=== PATIENT | female | born 1980 | race Caucasian/White ===

== ENCOUNTER 2020-03-22 20:46 | Emergency (ER) | payer SELFPAY ==
[2020-03-22 20:50] VITALS: BP 139/94; PULSE 90; RESP 18; TEMP 36.8; O2SAT 100
--- NOTE | 2020-03-22 21:11 | ED.GENADUL_ITS ---
Discharge Plan Disposition Patient Disposition: HOME Condition: Stable Discharge Details Chief Complaint: Urinary Clinical Impression: Ovarian cyst, Hematuria Primary Care Provider: Chandrika Simms ED Provider: Araceli Xie Home Meds and New Rx's Prescriptions: New phenazopyridine [Pyridium] 100 mg tablet 100 mg PO TID PRN (Reason: pain) Qty: 7 RF: 0 cephalexin 500 mg capsule 500 mg PO BID 5 Days Qty: 10 RF: 0 No Action naproxen sodium 550 MG tablet 550 mg PO Q12H PRN Qty: 60 RF: 0 sumatriptan succinate 6 MG/0.5 ML solution 6 mg SQ PRN PRNRF: 0 norethindrone (contraceptive) [Tulana] 0.35 mg Tablet 0.35 mg PO DAILY RF: 0 Discharge Instructions Instructions: Ovarian Cyst (ED), Hematuria (ED) Additional Instructions: Please take Tylenol or Ibuprofen with food every 4-6 hours as needed for pain and swelling. Please follow-up with an [facility] women's wellness clinic this week. I did speak with Dr. Carrington who agrees to follow-up with you in his office time sometime this week. Take Tylenol or ibuprofen as directed. I will give you antibiotics since you are having dysuria to treat for assumed UTI. Return sooner or be seen sooner for any worsening abdominal pain, worsening vaginal bleeding trouble urinating, fever chills or any concerns. Referrals: Garcia Carrington MD [ [facility] STAFF PHYSICIAN] - Chandrika Simms [Primary Care Provider] - Medical Decision Making 2116: Urinalysis is currently in lab and pending. POC hCG is negative. 2140: Discussed results with patient of urinalysis which shows moderate RBCs no leukocytes no nitrites. Due to patient's pelvic pain and symptoms she opted for a CT abdomen pelvis to rule out kidney stone. I will also give her Pyridium and cephalexin for the dysuria and Toradol for the pelvic pain. CT abdomen pelvis without contrast results are as follows: FINDINGS: Lungs: Lung bases are clear. Liver: Hepatic dome excluded from field of view limiting evaluation. Otherwise unremarkable. Gallbladder and bile ducts: Gallbladder is nondistended limiting evaluation. No focal inflammatory change in the gallbladder fossa. No biliary dilation. Pancreas: Unremarkable. No ductal dilation. Spleen: Splenic dome is excluded from field of view limiting evaluation. Spleen appears borderline enlarged. No splenic mass. Adrenals: Unremarkable. No mass. Kidneys and ureters: There is malrotation of the right kidney. No hydronephrosis or renal calcification. Ureters are normal in course and caliber. Stomach and bowel: Unremarkable. No obstruction. No mucosal thickening. Appendix: Within normal limits. Intraperitoneal space: No free air. No significant fluid collection. Vasculature: Within normal limits. No abdominal aortic aneurysm. Lymph nodes: No pathologically enlarged lymph nodes. Bladder: Unremarkable as visualized. Reproductive: There is complex cystic mass within the left adnexa measuring 3.6 cm in diameter with suggestion of fluid fluid level and punctate calcification. Otherwise unremarkable as visualized. Bones/joints: Unremarkable. No acute fracture. Soft tissues: No focal abnormality. IMPRESSION: 1. Complex 3.6 cm left adnexal cystic mass with suggestion of fluid fluid level and punctate calcification. Favor ovarian dermoid cyst versus hemorrhagic cyst. Recommend further characterization with pelvic sonogram. 2. Otherwise no acute finding of the abdomen or pelvis to explain symptoms. Thank you for allowing us to participate in the care of your patient. Dictated and Authenticated by: Neymar Cano MD 03/22/2020 10:06 PM Eastern Time ([place] & [place]) Will page [employer]GR[employer] TEACHER collections assistant for consult and follow up. Spoke with Dr. Carrington GLUING MACHINE OPERATOR [employer]LECT[employer]IC regarding patient's case and CT results he agreed to follow-up with her and see her sometime next week in the clinic. Discussed results with patient regarding ovarian cyst. She states that she is feeling much better after the Toradol IM injection. At this time I do not feel that is suspicious for ovarian torsion. Patient is mildly tender on the left adnexa with palpation. Her vital signs of remained stable. Due to patient's dysuria and hematuria I will prescribe 5 days of cephalexin 500 mg p.o. and Pyridium 100 mg 3 times a day as needed for dysuria. Instructed to take Tylenol or ibuprofen as needed for pain. Strict return instructions given including worsening pain, vaginal bleeding, inability to urinate, fever chills nausea vomiting or any concerns. Patient verbalized understanding. Differential diagnosis includes but not limited to ovarian cancer, ovarian cyst, ovarian torsion. UTI. Kidney stone. STD, endometriosis. HPI General Mode of arrival: ambulatory . Date/Time Provider Initiated Documentation: 03/22/20 20:51 . Limitations to Documentation: no limitations . Information obtained by: patient . HPI Narrative: 39-year-old female presents with dysuria and hematuria which began yesterday. Also associated with pelvic pain. She reports finishing her normal menstrual period 2 days ago. She states that she does not have any flank pain, no nausea vomiting, no fever or chills. She is concerned for UTI. She denies having any vaginal discharge, pruritus, or bleeding. No diarrhea. Related Data Home Medications Medication Instructions Recorded Confirmed naproxen sodium 550 mg PO Q12H PRN #60 tab-cap 09/30/16 03/22/20 sumatriptan succinate 6 mg SQ PRN PRN 04/08/17 03/22/20 cephalexin 500 mg PO BID 5 Days #10 cap 03/22/20 norethindrone (contraceptive) 0.35 mg PO DAILY 03/22/20 03/22/20 [Tulana] phenazopyridine [Pyridium] 100 mg PO TID PRN #7 tab 03/22/20 Previous Rx's Medication Instructions Recorded cephalexin 500 mg PO BID 5 Days #10 cap 03/22/20 phenazopyridine [Pyridium] 100 mg PO TID PRN #7 tab 03/22/20 Allergies Allergy/AdvReac Type Severity Reaction Status Date / Time carbamazepine [From Tegretol] Allergy Unknown RASH / LEGS Unverified 03/22/20 20:51 General Stated Complaint: Urinary KALEY: 3 Review of Systems Narrative: Constitutional: Negative for weight loss, alert and oriented, well groomed, normal body habitus, appears comfortable. HEENT: Denies trauma, headaches, blurry vision, nasal discharge, sore throat, trouble swallowing. Chest: Denies chest pain, palpitations, irregular rhythm, hypertension. Respiratory: Denies Shortness of breath, cough, hemoptysis. GI: Denies abdominal pain, nausea, vomiting, diarrhea, constipation. : Denies flank pain, rectal bleeding. Positive dysuria, positive hematuria. Denies vaginal discharge or itching. Denies any concern for STD. [facility] Medical History Contraception 07/2015 pt's planning vasectomy History of alcohol use 2014 no ETOH x3yrs History of depression Zoloft x6mo. Social History Smoking/Tobacco Use Status: Former Tobacco Use Alcohol Intake: never Substance use type: does not use Do you feel safe at home: Yes Do you feel safe in your relationship?: Yes Exam Narrative Exam Narrative: Constitutional: Alert and oriented x3. Appears stated age. Normal body habitus. Head: Normocephalic, no trauma. Eyes: Pupils PERRLA, Red reflex noted, EOM's intact. Eyelids symmetrical without lesions, discharge, or swelling. ENT: Bilateral TM's WNL, External ear normal to inspection, no mastoid TTP, swelling, or erythema, Nasal turbinates WNL, no nasal discharge. Normal dentition, Posterior pharynx WNL, no exudate. Chest: RRR, Normal S1, S2, distal pulses intact. Resp: Lungs clear to auscultation bilaterally, no wheezes, rales, or rhonchi. Abdomen: Soft nontender to palpation. Bowel sounds equal all 4 quadrants and normoactive. : No CVA tenderness no suprapubic tenderness to palpation. Skin: No suspicious rashes or lesions. Capillary refill less than 2 sec. Course Vital Signs Vital signs: Vital Signs Temperature 36.8 C 03/22/20 20:50 Pulse 90 03/22/20 20:50 Respiratory Rate 18 03/22/20 20:50 Blood Pressure 139/94 H 03/22/20 20:50 Pulse Oximetry 100 03/22/20 20:50 Temperature 36.8 C 03/22/20 20:50 Temperature Source Temporal Artery Scan 03/22/20 20:50 Pulse 90 03/22/20 20:50 Respiratory Rate 18 03/22/20 20:50 Respiratory Effort Non-Labored 03/22/20 20:55 Blood Pressure 139/94 H 03/22/20 20:50 Blood Pressure Position Sitting 03/22/20 20:50 Pulse Oximetry 100 03/22/20 20:50 Oxygen Delivery Method Room Air 03/22/20 20:50 Oxygen Flow Rate 0 03/22/20 20:50 Pain Level 9 03/22/20 20:55 Lab/Test Results Lab/Test Results: POC- Test(urine) Negative
[2020-03-22 21:23] LABS: Bilirubin Negative (Negative); Blood Moderate (Negative); Clarity Cloudy (Clear); Glucose Negative (Negative); Ketones Negative (Negative); Leukocyte Esterase Negative (Negative); Nitrite Negative (Negative); Specific Gravity >= 1.030 (1.005-1.025); Urobilinogen 0.2 EU/dL (Up TO 0.2)
[2020-03-22 21:25] LABS: WBC >50 HPF (0-5)
[2020-03-22 21:26] LABS: C & S Indicated? Yes; RBC >50 HPF (0-2)
--- NOTE | 2020-03-22 21:30 | DI.CT_ITS ---
EXAM: CT RENAL COLIC WO CLINICAL HISTORY: hematuria, pelvic pain. TECHNIQUE: Imaging Protocol: Axial computed tomography images with coronal and sagittal reformatted images were created and reviewed. COMPARISON: No exams were available for comparison FINDINGS: ABDOMEN: Lung Bases: Normal where visualized. Liver: Visualized portion is unremarkable. No measurable mass. Gallbladder and biliary tract: No radiodense calculus or biliary ductal dilation. Pancreas: Normal density, no abnormal calcifications or inflammatory process. Spleen: Visualized portion is unremarkable. Kidneys: Normal size, contour and axis. No radiodense stones or obstructive uropathy. No masses seen. There is malrotation of the right kidney. Adrenal glands: No masses seen. Lymph nodes: Within normal limits. Abdominal Aorta: Abdominal portion non-dilated. PELVIS: Bladder: Symmetric distention, no gross wall thickening. Bowel: No obstruction or bowel wall thickening. The appendix is normal in size without evidence of ad jacent mesenteric fat stranding or adjacent fluid collection. Peritoneal cavity: No ascites, collection or mesenteric inflammatory response. Reproductive organs: There is a 3.6 cm complex cystic lesion in the left adnexa. It does contain a f luid level and a punctate calcification. Bones: Within normal limits. Soft Tissues: Within normal limits. IMPRESSION: 1. No evidence of nephrolithiasis or hydronephrosis. 2. 3.6 cm complex cystic lesion with an internal calcification in the left adnexa. This may represen t an ovarian dermoid cyst. Hemorrhagic cysts cannot be excluded. Pelvic ultrasound should be consid ered for further evaluation. RADIATION DOSE DELIVERED: Total DLP DATA REPOSITORY: All CT scans at this facility are submitted to the National Radiology Data Registry (NRDR) Dose Index Registry (DIR) with the [employer] (A[employer]). RADIATION OPTIMIZATION: All CT scans at this facility use at least one of these dose optimization te chniques: automated exposure control; mA and/or kV adjustment per patient size (includes targeted exa ms where dose is matched to clinical indication); or iterative reconstruction.
[2020-03-22] MEDS: Cephalexin 500 MG CAP PO (21:42)
[2020-03-22] MEDS: Ketorolac 30 MG/ML VIAL IM (21:42)
[2020-03-22] MEDS: Phenazopyridine 100 MG TAB PO (21:42)
--- NOTE | 2020-03-22 22:07 | DI.VRAD_ITS ---
PROCEDURE INFORMATION: Exam: CT Abdomen And Pelvis Without Contrast Exam date and time: 03/22/2020 9:33 PM Age: 39 years old Clinical indication: Patient HX: Hematuria, pelvic pain TECHNIQUE: Imaging protocol: Computed tomography of the abdomen and pelvis without contrast. COMPARISON: [place] OB US 2-3 TRIMESTER TRANSABD*P 07/08/2015 3:03 PM FINDINGS: Lungs: Lung bases are clear. Liver: Hepatic dome excluded from field of view limiting evaluation. Otherwise unremarkable. Gallbladder and bile ducts: Gallbladder is nondistended limiting evaluation. No focal inflammatory change in the gallbladder fossa. No biliary dilation. Pancreas: Unremarkable. No ductal dilation. Spleen: Splenic dome is excluded from field of view limiting evaluation. Spleen appears borderline enlarged. No splenic mass. Adrenals: Unremarkable. No mass. Kidneys and ureters: There is malrotation of the right kidney. No hydronephrosis or renal calcification. Ureters are normal in course and caliber. Stomach and bowel: Unremarkable. No obstruction. No mucosal thickening. Appendix: Within normal limits. Intraperitoneal space: No free air. No significant fluid collection. Vasculature: Within normal limits. No abdominal aortic aneurysm. Lymph nodes: No pathologically enlarged lymph nodes. Bladder: Unremarkable as visualized. Reproductive: There is complex cystic mass within the left adnexa measuring 3.6 cm in diameter with suggestion of fluid fluid level and punctate calcification. Otherwise unremarkable as visualized. Bones/joints: Unremarkable. No acute fracture. Soft tissues: No focal abnormality. IMPRESSION: 1. Complex 3.6 cm left adnexal cystic mass with suggestion of fluid fluid level and punctate calcification. Favor ovarian dermoid cyst versus hemorrhagic cyst. Recommend further characterization with pelvic sonogram. 2. Otherwise no acute finding of the abdomen or pelvis to explain symptoms. Dictated and Authenticated by: Neymar Cano MD. Ordering:LOC Charles MD
[2020-03-22 22:32] VITALS: BP 139/94; PULSE 90; RESP 18; TEMP 36.8; O2SAT 100
== END 2020-03-22 22:40 | disposition home or self-care (01) ==
PROVIDERS: Emergency Provider Registered Nurse Emergency; PCP Nurse Practitioner
DX: N83.202 Unspecified ovarian cyst, left side (principal); R31.9 Hematuria, unspecified
CPT/HCPCS: 81025; 96372; 99285; 74176; 81003; 81015; 87086; 99284; J1885

== ENCOUNTER 2020-11-07 14:32 | Emergency (ER) | payer SELFPAY ==
[2020-11-07 14:44] VITALS: BP 159/99; PULSE 104; RESP 20; TEMP 36.7; O2SAT 99
--- NOTE | 2020-11-07 15:00 | RT.EKG_ITS ---
APPROVED REPORT Exam: Resting ECG Patient Location: E HR:98 bpm ECG Measurements Heart Rate 98 AXIS KS 108 P 88 QRSd 81 QRS 81 QT 338 T -11 QTc 433 Conclusion Sinus rhythm
--- NOTE | 2020-11-07 15:18 | ED.GENADUL_ITS ---
Discharge Plan Disposition Patient Disposition: HOME Condition: Stable Discharge Details Clinical Impression: Alcohol withdrawal Primary Care Provider: None,None ED Provider: Nick Meneses Home Meds and New Rx's Prescriptions: Continued naproxen sodium 550 MG tablet 550 mg PO Q12H PRN Qty: 60 RF: 0 sumatriptan succinate 6 MG/0.5 ML solution 6 mg SQ PRN PRNRF: 0 norethindrone (contraceptive) [[place]ulana] 0.35 mg Tablet 0.35 mg PO DAILY RF: 0 multivitamin Tablet 1 tab PO DAILY RF: 0 naltrexone 50 mg Tablet 25 mg PO HS RF: 0 propranolol 10 mg Tablet 10 mg PO PRN PRNRF: 0 dextroamphetamine-amphetamine [Adderall XR] 20 mg Capsule,Extended Release 24hr 20 mg PO DAILY RF: 0 diphenhydramine HCl 25 mg Tablet 25 mg PO PRN PRNRF: 0 mirtazapine 15 mg Tablet 15 mg PO HS RF: 0 docosahexaenoic acid-epa Capsule 1 cap PO DAILY RF: 0 Discharge Instructions Instructions: Alcohol Withdrawal (ED) Additional Instructions: At this time it appears as though you have responded nicely to the IV fluids and medications given. We discussed options such as detox within the facility however you have declined and ultimately would like to get down to [place] where you have detox in the past. I have set you up with both a student success coach and with our home health care worker to help with expediting outpatient resources and care. You have decided to be discharged home and will attempt to wean yourself slowly off of alcohol so that you can then go to the facility in [place]. Please watch for new or worsening symptoms and return to the ER for any concerns. Discharge Data Discharge Date/Time-TO BE ENTERED AT DEPARTURE: 11/07/20 20:35 Medical Decision Making <Araceli Xie - Last Filed: 11/10/20 08:41> 40-year-old female presents to the ED with chief complaint of alcohol intoxication and withdrawal symptoms. She states that prior to arrival she was tremulous, having auditory hallucinations, palpitations, nausea and dizziness. She does have a history of alcohol withdrawal. She had her last drink just prior to arrival. She states that yesterday she had 14 glasses of wine. She denies any vomiting or abdominal pain. At this time work-up ordered including CBC, CMP, alcohol level, urinalysis, urine drug screen normal saline 1 L a banana bag and 0.5 mg of lorazepam p.o. and Zofran 4 mg p.o. ODT. Care is to be handed off to oncoming provider FERNY Woodard pending lab, reevaluation and disposition. <FERNY Barrow - Last Filed: 11/07/20 20:50> This is a 40-year-old female who I assumed care of at shift change from my colleague LD Xie, please see her initial HPI and examination. Patient has been medicated but laboratory values are pending at signout. Laboratory values reveal a white blood cell count of 7.50 hemoglobin 14.2 hematocrit 43.1 platelet count 331. Electrolytes are unremarkable. Creatinine 0.67 with a GFR greater than 60. Initial glucose was 67. Patient did eat without difficulty and recheck glucose later was 101. Calcium 9.1 magnesium 2.1 LFTs are unremarkable, lipase 63. Urinalysis without signs of infection. Alcohol 79.5, tox screen unremarkable. Upon evaluating the patient in room 8, I saw a 40-year-old female lying supine in the hospital stretcher in no acute distress. It appears as though she was sleeping, awakes easily to verbal stimuli. We discussed her unremarkable work- up thus far. She states that she does have a mild headache but is overall feeling improvement. Her blood pressure is trending down nicely and she is no longer presenting with tachycardia. She denies any current hallucinations, shaking, abdominal pain, nausea, vomiting. She does not believe that she has ever had a seizure in the past. We had a very transparent conversation regarding how I could help her the most this evening. She states that she is not looking for inpatient detox this evening, does not want to be admitted, and needs to be tuned up. Clinically I see no signs of active withdrawal. She tells me that she eventually would like to go to a detox facility in [place] that she has gone to in the past; however, she needs to go at a more convenient time. We discussed additional options. She is comfortable with discharge home and states that she was on the phone with the detox facility in [place] within the last 24 hours who thought that she perhaps was attempting to detox at home to aggressively, likely needed to slow down. I got her into contact with a student success coach, they spoke on the phone, and she will continue to follow their recommendations. I was also able to place her on the care management list to help expedite outpatient resources and care locally here. Upon discharge patient has no additional questions or concerns. She feels as though going home currently is the best option, will continue to attempt to wean herself off of alcohol more slowly at home, and get to detox in [place] when more convenient. We discussed the importance of returning to the ER for new or worsening symptoms. Medical Records Medical records reviewed: Yes I reviewed the patient's medical records. Lab Data Lab results reviewed: Yes I reviewed the patient's lab results. Lab results narrative: Laboratory Tests Range/Units 11/07/20 11/07/20 11/07/20 15:45 15:45 16:05 WBC (4.4-10.8) 10^3/uL RBC (3.93-5.22) 10^6/uL Hgb (11.2-15.7) g/dL Hct (36.0-46.0) % MCV (80-95) fL MCH (27.0-33.0) pg MCHC (32.0-36.0) % RDW (11.7-14.6) % Plt Count (130-400) 10^3/uL MPV (8.0-11.0) fL Immature Gran % Neutrophils % Lymphocytes % Monocytes % Eosinophils % Basophils % Nucleated RBC % % Absolute Neutrophils (1.2-6.7) 10^3/uL Absolute Lymphocytes (1.2-3.4) 10^3/uL Absolute Monocytes (0.1-0.8) 10^3/uL Absolute Eosinophils (0.0-0.7) 10^3/uL Absolute Basophils (0.0-0.2) 10^3/uL Sodium (136-145) mmol/L 138 Potassium (3.5-5.1) mmol/L 4.1 Chloride (98-107) mmol/L 103 Carbon Dioxide (21.0-32.0) mmol/L 26.1 Anion Gap (3-11) mmol/L 8.9 BUN (7-18) mg/dL 10 Creatinine (0.55-1.02) mg/dL 0.67 Estimated GFR/1.73 m2 (mL/min/1.73m2) >= 60.00 Glucose (74-106) mg/dL 67 L Calcium (8.5-10.1) mg/dL 9.1 Magnesium (1.8-2.4) mg/dL 2.1 Total Bilirubin (0.2-1.0) mg/dL 0.5 AST (15-37) U/L 20 ALT (14-59) U/L 22 Alkaline Phosphatase (46-116) U/L 60 Total Protein (6.4-8.2) g/dL 8.1 Albumin (3.4-5.0) g/dL 4.2 Lipase (73-393) U/L 63 Urine Color (Yellow) Straw Urine Clarity (Clear) Clear Urine pH (5-8) 6.0 Ur Specific [place] (1.005-1.025) <= 1.005 Urine Protein (Negative) mg/dL Negative Urine Ketones (Negative) mg/dL Negative Urine Blood (Negative) Small H Urine Nitrite (Negative) Negative Urine Bilirubin (Negative) Negative Urine Urobilinogen (Up TO 0.2) EU/dL 0.2 Ur Leukocyte Esterase (Negative) Negative Urine RBC (0-2) HPF Negative Urine WBC (0-5) HPF Negative Ur Epithelial Cells (Negative) HPF Moderate Urine Crystals (Negative) HPF Negative Urine Bacteria (Negative) HPF Negative Urine Mucus (Negative) Negative Ur Culture Indicated? No Urine Glucose (Negative) mg/dL Negative Urine Opiates Screen (Negative) Negative Urine Methadone Screen (Negative) Negative Ur Barbiturates Screen (Negative) Negative Ur Tricyclics Screen (Negative) Negative Ur Amphetamines Screen (Negative) Negative U Benzodiazepines Scrn (Negative) Negative Urine Cocaine Screen (Negative) Negative Ur THC Screen (Negative) Negative Ethyl Alcohol (<3) mg/dL 79.5 Range/Units 11/07/20 16:05 WBC (4.4-10.8) 10^3/uL 7.50 RBC (3.93-5.22) 10^6/uL 4.72 Hgb (11.2-15.7) g/dL 14.2 Hct (36.0-46.0) % 43.1 MCV (80-95) fL 91.3 MCH (27.0-33.0) pg 30.1 MCHC (32.0-36.0) % 32.9 RDW (11.7-14.6) % 15.4 H Plt Count (130-400) 10^3/uL 331 MPV (8.0-11.0) fL 10.8 Immature Gran % 0.3 Neutrophils % 73.7 Lymphocytes % 19.3 Monocytes % 5.1 Eosinophils % 1.1 Basophils % 0.5 Nucleated RBC % % 0 Absolute Neutrophils (1.2-6.7) 10^3/uL 5.53 Absolute Lymphocytes (1.2-3.4) 10^3/uL 1.45 Absolute Monocytes (0.1-0.8) 10^3/uL 0.38 Absolute Eosinophils (0.0-0.7) 10^3/uL 0.08 Absolute Basophils (0.0-0.2) 10^3/uL 0.04 Sodium (136-145) mmol/L Potassium (3.5-5.1) mmol/L Chloride (98-107) mmol/L Carbon Dioxide (21.0-32.0) mmol/L Anion Gap (3-11) mmol/L BUN (7-18) mg/dL Creatinine (0.55-1.02) mg/dL Estimated GFR/1.73 m2 (mL/min/1.73m2) Glucose (74-106) mg/dL Calcium (8.5-10.1) mg/dL Magnesium (1.8-2.4) mg/dL Total Bilirubin (0.2-1.0) mg/dL AST (15-37) U/L ALT (14-59) U/L Alkaline Phosphatase (46-116) U/L Total Protein (6.4-8.2) g/dL Albumin (3.4-5.0) g/dL Lipase (73-393) U/L Urine Color (Yellow) Urine Clarity (Clear) Urine pH (5-8) Ur Specific [place] (1.005-1.025) Urine Protein (Negative) mg/dL Urine Ketones (Negative) mg/dL Urine Blood (Negative) Urine Nitrite (Negative) Urine Bilirubin (Negative) Urine Urobilinogen (Up TO 0.2) EU/dL Ur Leukocyte Esterase (Negative) Urine RBC (0-2) HPF Urine WBC (0-5) HPF Ur Epithelial Cells (Negative) HPF Urine Crystals (Negative) HPF Urine Bacteria (Negative) HPF Urine Mucus (Negative) Ur Culture Indicated? Urine Glucose (Negative) mg/dL Urine Opiates Screen (Negative) Urine Methadone Screen (Negative) Ur Barbiturates Screen (Negative) Ur Tricyclics Screen (Negative) Ur Amphetamines Screen (Negative) U Benzodiazepines Scrn (Negative) Urine Cocaine Screen (Negative) Ur THC Screen (Negative) Ethyl Alcohol (<3) mg/dL HPI <Araceli Xie - Last Filed: 11/10/20 08:41> General Mode of arrival: ambulatory . Date/Time Provider Initiated Documentation: 11/07/20 14:37 . Limitations to Documentation: no limitations . Information obtained by: patient . HPI Narrative: 40-year-old female presents to the ED with chief complaint of alcohol withdrawal. She states that she had approximately 14 glasses of wine yesterday and approximately 3 glasses of wine just prior to arrival. She reports palpitations, nausea, headache, auditory hallucinations. She states that she has withdrawn before in the past. She denies any vomiting. She does have a past medical history of migraines. She does endorse marijuana occasionally. Related Data Home Medications Medication Instructions Recorded Confirmed naproxen sodium 550 mg PO Q12H PRN #60 tab-cap 09/30/16 11/07/20 sumatriptan succinate 6 mg SQ PRN PRN 04/08/17 11/07/20 norethindrone (contraceptive) 0.35 mg PO DAILY 03/22/20 11/07/20 [Tulana] dextroamphetamine-amphetamine 20 mg PO DAILY 11/07/20 11/07/20 [Adderall XR] diphenhydramine HCl 25 mg PO PRN PRN 11/07/20 11/07/20 docosahexaenoic acid-epa 1 cap PO DAILY 11/07/20 11/07/20 mirtazapine 15 mg PO HS 11/07/20 11/07/20 multivitamin 1 tab PO DAILY 11/07/20 11/07/20 naltrexone 25 mg PO HS 11/07/20 11/07/20 propranolol 10 mg PO PRN PRN 11/07/20 11/07/20 Allergies Allergy/AdvReac Type Severity Reaction Status Date / Time carbamazepine [From Tegretol] Allergy Unknown RASH / LEGS Unverified 11/07/20 16:05 gabapentin Allergy Skin Rash Unverified 11/07/20 16:05 General Stated Complaint: ETOHWithdr KALEY: 3 Review of Systems <Araceli Xie - Last Filed: 11/10/20 08:41> Narrative: Constitutional: Negative for weight loss, alert and oriented, well groomed, normal body habitus, appears comfortable. HEENT: Denies trauma, headaches, blurry vision, nasal discharge, sore throat, trouble swallowing. Chest: Denies chest pain, palpitations, irregular rhythm, hypertension. Respiratory: Denies Shortness of breath, cough, hemoptysis. GI: Denies abdominal pain, nausea, vomiting, diarrhea, constipation. : Denies dysuria, hematuria, flank pain, rectal bleeding. Neuro: Denies dizziness, blurry vision, weakness, syncope, headache or facial numbness. Hematologic: Denies easy bruising, intolerance to heat or cold, hair loss. PFSH <Araceli Xie - Last Filed: 11/10/20 08:41> Medical History (Updated 11/07/20 @ 19:23 by FERNY Barrow) Contraception 07/2015 pt's planning vasectomy History of alcohol use 2014 no ETOH x3yrs History of depression Zoloft x6mo. Social History Smoking/Tobacco Use Status: Current every day Tobacco Type: cigarettes Smoking risk assessment performed?: Yes Alcohol Intake: current Alcohol Intake frequency: 3 or more drinks per day Alcohol type: beer, wine and hard liquor Drug use: Occasionally Substance use type: marijuana, club/fuel cell designer drugs and other Do you feel safe at home: Yes Do you feel safe in your relationship?: Yes Exam <Araceli Xie - Last Filed: 11/10/20 08:41> Narrative Exam Narrative: Constitutional: Alert and oriented x3. Appears stated age. Normal body habitus. Head: Normocephalic, no trauma. Eyes: Pupils PERRLA, Red reflex noted, EOM's intact. Eyelids symmetrical without lesions, discharge, or swelling. ENT: Bilateral TM's WNL, External ear normal to inspection, no mastoid TTP, swelling, or erythema, Nasal turbinates WNL, no nasal discharge. Normal dentition, Posterior pharynx WNL, no exudate. Chest: Tachycardic, normal S1, S2, distal pulses intact. Hypertensive, Resp: Lungs clear to auscultation bilaterally, no wheezes, rales, or rhonchi. Musculoskeletal: Normal gait, 5/5 strength to all four extremities. Skin: No suspicious rashes or lesions. Capillary refill less than 2 sec. Neurologic: Cranial nerves II-XII intact. Alert and oriented x 3. DTR's intact. Hematologic/Lymphatic: No ecchymosis, no lymphadenopathy. Course <Araceli Xie - Last Filed: 11/10/20 08:41> Vital Signs Vital signs: Vital Signs Temperature 36.7 C 11/07/20 14:44 Pulse 104 H 11/07/20 14:44 Respiratory Rate 20 11/07/20 14:44 Blood Pressure 159/99 H 11/07/20 14:44 Pulse Oximetry 99 11/07/20 14:44 Temperature 36.7 C 11/07/20 14:44 Pulse 104 H 11/07/20 14:44 Respiratory Rate 20 11/07/20 14:44 Respiratory Effort Non-Labored 11/07/20 14:49 Respiratory Pattern Normal 11/07/20 14:53 Blood Pressure 159/99 H 11/07/20 14:44 Blood Pressure Position Sitting 11/07/20 14:44 Pulse Oximetry 99 11/07/20 14:44 Oxygen Delivery Method Room Air 11/07/20 14:44 Oxygen Flow Rate 0 11/07/20 14:44 Pain Level 7 11/07/20 14:44 Sign Out <Araceli Xie - Last Filed: 11/10/20 08:41> Sign Out Data: Sign Out Comment: Pending labs and re-eval/disposition Last updated by Araceli Xie at 11/07/20 16:00
[2020-11-07 15:57] LABS: Bilirubin Negative (Negative); Blood Small (Negative); Clarity Clear (Clear); Glucose Negative (Negative); Ketones Negative (Negative); Leukocyte Esterase Negative (Negative); Nitrite Negative (Negative); Specific Gravity <= 1.005 (1.005-1.025); Urobilinogen 0.2 EU/dL (Up TO 0.2)
[2020-11-07 16:08] LABS: *AMPHETAMINES SCREEN URINE Negative (Negative); *BARBITURATES SCREEN URINE Negative (Negative); *BENZODIAZEPINES SCREEN URINE Negative (Negative); Cannabinoids THC Negative (Negative); Cocaine Screen,Urine Negative (Negative); METHADONE URINE SCREEN Negative (Negative); OPIATES URINE SCREEN Negative (Negative)
[2020-11-07 16:18] LABS: Bacteria Negative HPF (Negative); C & S Indicated? No; Crystals Negative HPF (Negative); Epithelial Cells Moderate HPF (Negative); Mucus Negative (Negative); RBC Negative HPF (0-2); WBC Negative HPF (0-5)
[2020-11-07 16:20] LABS: Tricyclic Antidepressants Negative (Negative)
[2020-11-07 16:37] LABS: Abs Immature Grans 0.02 10^3/uL (0.0-0.06); Absolute Basophil Count 0.04 10^3/uL (0.0-0.2); Absolute Eosinophil Count 0.08 10^3/uL (0.0-0.7); Absolute Lymphocyte Count 1.45 10^3/uL (1.2-3.4); Absolute Monocyte Count 0.38 10^3/uL (0.1-0.8); Absolute Neutrophil Count 5.53 10^3/uL (1.2-6.7); Basophils % 0.5; Eosinophils % 1.1; HCT 43.1 % (36.0-46.0); HGB 14.2 g/dL (11.2-15.7); Immature Grans % 0.3; Lymphocytes % 19.3; MCH 30.1 pg (27.0-33.0); MCHC 32.9 % (32.0-36.0); MCV 91.3 fL (80-95); MPV 10.8 fL (8.0-11.0); Monocytes % 5.1; Neutrophils % 73.7; Nucleated RBC 0 %; Platelet Count 331 10^3/uL (130-400); RBC 4.72 10^6/uL (3.93-5.22); RDW 15.4 % (11.7-14.6); RDW-SD 52.2 fL
[2020-11-07] MEDS: MAGNESIUM SULFATE 8.12 MEQ, MULTIVITAMIN 10 ML, THIAMINE 100 MG, FOLIC ACID 1 MG in Nor... 168.867 MG IV (16:42)
[2020-11-07 16:56] LABS: ALT 22 U/L (14-59); AST 20 U/L (15-37); Albumin 4.2 g/dL (3.4-5.0); Alkaline Phosphatase 60 U/L (46-116); Anion Gap 8.9 mmol/L (3-11); BUN 10 mg/dL (7-18); Bilirubin, Total 0.5 mg/dL (0.2-1.0); CO2 26.1 mmol/L (21.0-32.0); CREATININE 0.67 mg/dL (0.55-1.02); Calcium 9.1 mg/dL (8.5-10.1); Chloride 103 mmol/L (98-107); ETHANOL BLOOD 79.5 mg/dL (<3); Glucose 67 mg/dL (74-106); Lipase 63 U/L (73-393); Magnesium 2.1 mg/dL (1.8-2.4); Potassium 4.1 mmol/L (3.5-5.1); Sodium 138 mmol/L (136-145); Total Protein 8.1 g/dL (6.4-8.2)
[2020-11-07 17:34] VITALS: BP 111/73; PULSE 70; RESP 16; TEMP 36.4; O2SAT 99
--- NOTE | 2020-11-07 17:45 | NUR.NOTE ---
Nursing Note: Referral given to Care Management to establish care/ongoing alcohol abuse for follow up. Sissy Rhodes
[2020-11-07 19:35] VITALS: BP 106/62; PULSE 89; RESP 16; TEMP 36.5; O2SAT 98
[2020-11-07 19:38] VITALS: BP 106/62; PULSE 89; RESP 16; TEMP 36.5; O2SAT 98
--- NOTE | 2020-11-08 11:06 | NUR.NOTE ---
Nursing Note: [facility] Pooling Operator spoke with patient yesterday. Today tried to contact the patient with no success. Called to see if admitted or discharged. Pt was discharged, I gave her the number we have on file and it is the same number that she gave the Pooling Operator. Sissy Rhodes
--- NOTE | 2020-11-10 17:57 | CMPROGNOTE_ITS ---
- If Service Date Differs Date of service: 11/10/20 Time of Service: 17:57 Care Management Progress Note CM received a referral for Steff to be connected to a new PCP for follow up and to establish care. CM sent referral to Tdoc on schedule, which was Olimpia Hernandez from [facility]. Referral sent on 11/10/20.
== END 2020-11-07 20:35 | disposition home or self-care (01) ==
PROVIDERS: Registered Nurse Emergency; Emergency Provider Physician Assistant
DX: F10.131 Alcohol abuse with withdrawal delirium (principal); Y90.3 Blood alcohol level of 60-79 mg/100 ml
CPT/HCPCS: 36415; 36416; 80053; 80307; 81025; 82962; 83690; 93005; 96365; 96366; 99284; 80320; 81003; 81015; 83735; 85025; 93010

== ENCOUNTER 2021-04-08 21:18 | Observation (INO) | payer OTHER, SELFPAY ==
[2021-04-08 21:24] VITALS: BP 134/84; PULSE 83; RESP 16; TEMP 36.1; O2SAT 100
--- NOTE | 2021-04-08 21:28 | ED.GENADUL_ITS ---
Discharge Plan Disposition Patient Disposition: [facility] INPATIENT Condition: Fair Discharge Details Chief Complaint: LIVE IN COMPANION Clinical Impression: Positive test, Left lower quadrant pain, Free fluid in pelvis Admit Date/Time: 04/09/21 00:35 Admit Provider: Steff Mock Attending Provider: Steff Mock Primary Care Provider: None,None ED Provider: Leti Greco Discharge Instructions Activity:: Activity as Tolerated Equipment/Supplies:: No Equipment Needed Diet:: As Tolerated Discharge Orders Discharge Orders: Discharge Order (Routine); Ordered 04/09/21 Ordered By: Steff Mock Discharge Data Discharge Date/Time-TO BE ENTERED AT DEPARTURE: 04/09/21 01:36 Medical Decision Making Patient is a pleasant 40-year-old female presenting today with chief complaint of left lower quadrant pain. She reports that pain began last night after having intercourse with her significant other. She reports that shortly after she developed stabbing pain in the left lower quadrant. States that she was nauseated and vomited x1. Reports that this severe pain lasted for approximately 1 hour and eventually began to subside. Since that time, patient had a low ache in the left lower quadrant. Reports that she did vomit one other time this afternoon. Was currently endorsing nausea. No bowel movement today. Denies any hematuria. No vaginal discharge. No previous abdominal surgeries. Patient is primarily concerned that she may have ruptured an ovarian cyst. Patient did have a renal CT 1 year ago which did show a 3.6 complex cystic lesion in the left adnexa consistent for an ovarian dermoid cyst versus hemorrhagic cyst. They did recommend pelvic ultrasound the patient did not have this performed. Patient has been using anti-inflammatories to help with discomfort LMP 2 weeks ago, patient on OCP. On exam, patient appears anxious and uncomfortable. She does appear nontoxic and hemodynamically stable. She does have tenderness with palpation of the left lower quadrant but no peritoneal findings. Concern at this time for ruptured cyst, also considered torsion, diverticulitis, nephrolithiasis, versus other. Plan for this and blood lower. Patient is on naltrexone daily. She is requesting something for discomfort. Will give Ativan which also help with her anxiety.Will give zofran for nausea. Pain and nausea improved. US reviewed by tech. She advises free fluid in pelvis as well as Morrisons pouch. Notes that left ovary appears unusual but has good blood flow. Patient unable to give urine. HCG qual positive. Will obtain quant, type and screen. Concerned for ruptured ectopic, will consult with OBGYN. Spoke with Dr. Wong. She will come in to evaluate the patient. Reevaluated the patient. Reports that she may have missed 1/2 dose of her OCP. She does not want to be . Pain well controlled at this time. Discussed concerns of ruptured ectopic at length with the patient. She voices understanding. Has remained NPO. US reviewed by radiologist: FINDINGS: Uterus/cervix: The uterus measures 10.2 x 5.1 x 7.2 cm (vol = cm3). Endometrial stripe measures 5.6 mm. Cervical nabothian cyst. Right adnexa: The right ovary measures 3.2 x 2.4 x 2.4 cm (vol = cm3). 18 x 18 x 17 mm right ovarian simple cyst. No mass. Normal ovarian blood flow. Left adnexa: The left ovary measures 5.3 x 3.8 x 4.4 cm (vol = cm3). 2.2 x 2.0 x 1.8 cm and 3.9 x 3.3 x 3.5 cm complex left ovarian cysts. No mass. Normal ovarian blood flow. Intraperitoneal space: Large amount free pelvic fluid containing low-level echoes suggesting complication by hemorrhage or infection. Urinary bladder: Normal. IMPRESSION: 1. Normal Doppler flow to each ovary. No evidence of ovarian torsion. 2. 18 x 18 x 17 mm right ovarian simple cyst. 3. 2.2 x 2.0 x 1.8 cm and 3.9 x 3.3 x 3.5 cm complex left ovarian cysts 4. Large amount free pelvic fluid containing low-level echoes suggesting complication by hemorrhage or infection Spoke with radiologist. No intrauterine PG noted. Patient was evaluated by Dr. Mock. Question if this could be a ruptured hemorrhagic cyst versus ectopic . Based on the current hCG, this is unclear. Dr. Mock recommends admission with continued monitoring and possible surgical intervention. Discussed these recommendations with the patient. She is been n.p.o. since being here. All of her questions and concerns were addressed and she is in agreement with plan. HPI General Mode of arrival: ambulatory . Date/Time Provider Initiated Documentation: 04/08/21 21:19 . Limitations to Documentation: no limitations . Information obtained by: patient, RN notes reviewed and old records reviewed . History of Present Illness 40 year old F presents to the emergency department with the chief complaint of LLQ pain, described as moderate, with intensity rated at 6. Quality is described as aching and sharp, and is localized to the abdomen and left. Patient reports no radiation. Patient started experiencing this day(s) (1) and it has been constant. No relieving factors improve symptom(s), No exacerbating factors reported . Patient notes loss of appetite and nausea/vomiting (2 episodes of vomiting); denies chest pain, cough, fever/chills and shortness of breath. Patient did receive the following treatments prior to arrival, NSAID Related Data Home Medications Medication Instructions Recorded Confirmed naproxen sodium 550 mg PO Q12H PRN #60 tab-cap 09/30/16 04/09/21 sumatriptan succinate 6 mg SQ PRN PRN 04/08/17 04/09/21 norethindrone (contraceptive) 0.35 mg PO DAILY 03/22/20 04/08/21 [Tulana] dextroamphetamine-amphetamine 20 mg PO DAILY 11/07/20 04/09/21 [Adderall XR] diphenhydramine HCl 25 mg PO PRN PRN 11/07/20 04/09/21 docosahexaenoic acid-epa 1 cap PO DAILY 11/07/20 04/09/21 mirtazapine 15 mg PO HS 11/07/20 04/09/21 multivitamin 1 tab PO DAILY 11/07/20 04/08/21 naltrexone 25 mg PO HS 11/07/20 04/08/21 propranolol 10 mg PO PRN PRN 11/07/20 04/09/21 ibuprofen 600 mg tablet 600 mg PO Q6H PRN #30 tab 04/09/21 oxycodone-acetaminophen 5 mg-325 1 tab PO Q6H PRN #7 tab MDD 4 04/09/21 mg tablet Previous Rx's Medication Instructions Recorded ibuprofen 600 mg tablet 600 mg PO Q6H PRN #30 tab 04/09/21 oxycodone-acetaminophen 5 mg-325 1 tab PO Q6H PRN #7 tab MDD 4 04/09/21 mg tablet Allergies Allergy/AdvReac Type Severity Reaction Status Date / Time carbamazepine [From Tegretol] Allergy Unknown RASH / LEGS Unverified 11/07/20 16:05 gabapentin Allergy Skin Rash Unverified 11/07/20 16:05 General Stated Complaint: LIVE IN COMPANION KALEY: 4 Review of Systems Constitutional Constitutional: Reports as per HPI, Denies chills, Denies fatigue, Denies fever(s) and Denies headache(s) ENT Ears, Nose, Mouth, and Throat: Denies headache(s) Cardiovascular Cardiovascular: Reports as per HPI, Denies chest pain and Denies dyspnea Respiratory Respiratory: Reports as per HPI, Denies cough and Denies dyspnea Gastrointestinal Gastrointestinal: Reports as per HPI Genitourinary Genitourinary: Denies abnormal menses, Denies metrorrhagia, Denies hematuria, Denies dyspareunia (pain came on after intercourse, not during), Denies pelvic pain, Denies sexual dysfunction, Denies flank pain and Denies vaginal discharge Musculoskeletal Musculoskeletal: Reports as per HPI and Denies back pain Integumentary/Breasts Skin/Breast: Reports as per HPI and Denies rash Neurologic Neurologic: Reports as per HPI and Denies headache(s) Endocrine Endocrine: Denies fatigue PFSH Medical History Anxiety Depression History of alcohol use Recently started Naltrexone History of depression Zoloft x6mo. Tobacco use Surgical History (Updated 04/09/21 @ 12:19 by Steff Mock MD) History of left salpingo-oophorectomy 04/09/2021. Laparoscopic evaluation of possible left ovarian ectopic . Social History (Updated 04/09/21 @ 01:01 by Steff Mock MD) Smoking/Tobacco Use Status: Current every day Tobacco Type: cigarettes Smoking risk assessment performed?: Yes Alcohol Intake: current Alcohol Intake frequency: 3 or more drinks per day Alcohol type: beer, wine and hard liquor Drug use: Occasionally Substance use type: marijuana, club/kitchen designer drugs and other Household members: other Details: Cordell who has custody of 2 children Number of Children: 2 Communication Needs: None current occupation: owns a diner Sexually active: Yes Do you feel safe at home: Yes Do you feel safe in your relationship?: Yes History History 3 Para 2 Hx # Term Pregnancies 2 Multiple births Hx # Pregnancies 0 Ectopic pregnancies AB induced 1 Hx Number of Living Children 2 AB spontaneous Past Pregnancies Del. Date GA/Weeks # Outcome Route Wgt Sex Labor Lgth Anesthes ia Location Prov Complic 02/19/11 40 No Successful vaginal 3033.399 g Male 09/28/11 8 No Unsuccessful 07/09/15 40 No Successful vaginal 3373.593 g Female Delivery Date: 02/19/11 [facility] Steff [facility]est[facility] Delivery Date: 09/28/11 Steff [place] Delivery Date: 07/09/15 Steff [facility] Exam Const General: cooperative, healthy appearing, uncomfortable, no acute distress, well developed and anxious Nutritional Appearance: average body habitus and well nourished Orientation: alert and awake HENMT Head: normal to inspection Mouth: moist mucous membranes Resp Effort & Inspection: normal respiratory effort, able to speak in complete sentences and no respiratory distress Auscultation: clear to auscultation bilaterally, no rales, no rhonchi and no wheezes Cardio Rate: regular rate Rhythm: regular rhythm Heart Sounds: S1 normal and S2 normal GI Inspection: normal to inspection Palpation: soft, no hepatosplenomegaly, not firm, no guarding, no masses, not rigid and tender in the LLQ; with no rebound tenderness Percussion: normal to percussion Auscultation: normal bowel sounds Back/Spine/Pelvis Back: no CVA tenderness Skin General skin exam: no rashes or lesions noted Trauma: no lacerations or abrasions Neuro General: patient alert and patient awake Cognition: normal cognition Speech: speech normal Gait: normal gait Psych Appearance: grossly normal and well kempt Mental Status: mental status grossly normal Speech and Movement: speech and movement normal Course Vital Signs Vital signs: Vital Signs Temperature 36.1 C L 04/08/21 21:24 Pulse 83 04/08/21 21:24 Respiratory Rate 16 04/08/21 21:24 Blood Pressure 134/84 04/08/21 21:24 Pulse Oximetry 100 04/08/21 21:24 Temperature 36.1 C L 04/08/21 21:24 Temperature Source Temporal Artery Scan 04/08/21 21:24 Pulse 83 04/08/21 21:24 Respiratory Rate 16 04/08/21 21:24 Respiratory Effort Non-Labored 04/08/21 21:26 Blood Pressure 134/84 04/08/21 21:24 Blood Pressure Position Sitting 04/08/21 21:24 Pulse Oximetry 100 04/08/21 21:24 Oxygen Delivery Method Room Air 04/08/21 21:24 Oxygen Flow Rate 0 04/08/21 21:24 Pain Level 6 04/08/21 21:27
--- NOTE | 2021-04-08 21:45 | DI.US_ITS ---
Exam(s) US ABD PELV TRANSVAG NON-OB EXAM: US ABD PELV TRANSVAG NON-OB CLINICAL HISTORY: LLQ pain, hx of ovarian cyst TECHNIQUE: Ultrasound of the pelvis was performed both transabdominal and transvaginal. COMPARISON: US OB US 2-3 TRIMESTER TRANSABD*P from 07/08/2015 FINDINGS: UTERUS: Uterus is nongravid anteverted. Measures 10 cm length x 5 cm AP x 7 cm wide. There are no uterine fibroids. Endometrial thickness measures 5-6 mm. There is no fluid in the endometrial canal. CERVIX: Small nabothian cyst noted RIGHT OVARY: Measures 3.2 x 2.4 x 2.4 cm cm Contains a simple cyst measuring 18 x 18 x 17 millimeters. No solid mass. Normal ovarian blood flow demonstrated. LEFT OVARY: Measures 5.3 x 3.8 x 4.4 cm cm Contains 2 complex ovarian cysts. These measure 2.2 x 2.0 x 1.8 cm and 3.9 x 3.3 x 3.5 cm. Normal b lood flow is demonstrated in the left ovary. CUL-DE-SAC: There is a large amount of free pelvic fluid which exhibits echogenic characteristic cons istent with hemorrhage or infection. IMPRESSION: 1. Normal appearing uterus and age-appropriate endometrium. 2. Two complex cysts noted in the left ovary as described above and 1 simple cyst in the right ovary. No solid ovarian masses nor evidence of ovarian torsion. 3. There is is significant mount of echogenic free fluid in the pelvis which may indicate hemorrhage or infection. Correlation with clinical findings including test recommended. This study d oes not rule out the possibility of ectopic . Study 1st read by [facility] DATA REPOSITORY:
[2021-04-08] MEDS: LORazepam 2 MG/ML VIAL 0.5 MG IVP (21:56)
[2021-04-08] MEDS: Lactated Ringers 1,000 ML 1000 ML IV (21:56)
[2021-04-08 21:57] LABS: Abs Immature Grans 0.02 10^3/uL (0.0-0.06); Absolute Basophil Count 0.03 10^3/uL (0.0-0.2); Absolute Eosinophil Count 0.11 10^3/uL (0.0-0.7); Absolute Lymphocyte Count 1.64 10^3/uL (1.2-3.4); Absolute Monocyte Count 0.65 10^3/uL (0.1-0.8); Absolute Neutrophil Count 5.92 10^3/uL (1.2-6.7); Basophils % 0.4; Eosinophils % 1.3; HCT 42.9 % (36.0-46.0); Immature Grans % 0.2; Lymphocytes % 19.6; MCH 31.5 pg (27.0-33.0); MCHC 32.6 % (32.0-36.0); MCV 96.4 fL (80-95); MPV 10.9 fL (8.0-11.0); Monocytes % 7.8; Neutrophils % 70.7; Nucleated RBC 0 %; Platelet Count 247 10^3/uL (130-400); RBC 4.45 10^6/uL (3.93-5.22); RDW 12.3 % (11.7-14.6); RDW-SD 43.5 fL; WBC 8.37 10^3/uL (4.4-10.8)
[2021-04-08] MEDS: Ondansetron 4 MG/2 ML VIAL IVP (21:57)
[2021-04-08 22:10] LABS: ALT 20 U/L (14-59); AST 12 U/L (15-37); Albumin 4.1 g/dL (3.4-5.0); Alkaline Phosphatase 55 U/L (46-116); Anion Gap 10.4 mmol/L (3-11); BUN 14 mg/dL (7-18); Bilirubin, Total 0.8 mg/dL (0.2-1.0); CO2 26.6 mmol/L (21.0-32.0); CREATININE 0.8 mg/dL (0.55-1.02); Chloride 102 mmol/L (98-107); Glucose 86 mg/dL (74-106); Potassium 3.3 mmol/L (3.5-5.1); Sodium 139 mmol/L (136-145); Total Protein 7.9 g/dL (6.4-8.2)
[2021-04-08] MEDS: LORazepam 2 MG/ML VIAL 1 MG IVP (22:36)
[2021-04-08 23:19] LABS: HCG Qual (Serum) Positive
[2021-04-08 23:48] VITALS: BP 120/74; PULSE 85; RESP 16; O2SAT 99
--- NOTE | 2021-04-08 23:49 | DI.VRAD_ITS ---
Addendum created by Den Diggs MD on 04/08/2021 11:53:56 PM EDT: SERINA SIMPSON states that patient has positive test (no quant avail). Therefore, ruptured ectopic must be considered (no intrauterine is identified) as well as ruptured left ovarian hemorrhagic cyst. THIS REPORT CONTAINS FINDINGS THAT MAY BE CRITICAL TO PATIENT CARE. The findings were verbally communicated via telephone conference with SERINA RHODES at 11:50 PM EDT on 04/08/2021. The findings were acknowledged and understood. Initial report created on 04/08/2021 11:49:03 PM EDT: PROCEDURE INFORMATION: Exam: US Pelvis Complete, Transabdominal and US Pelvis, Transvaginal Exam date and time: 04/08/2021 10:58 PM Age: 40 years old Clinical indication: Pelvic pain, LLQ pain after intercourse; Additional info: Normal blood flow noted to both ovaries. Heterogeneous, enlarged left ovary. TECHNIQUE: Imaging protocol: Real-time transabdominal and transvaginal pelvic ultrasound (complete) with image documentation. Transvaginal imaging was used for better evaluation of the endometrium, adnexa, and/or cervix. COMPARISON: CT RENAL COLIC WO 03/22/2020 9:46 PM FINDINGS: Uterus/cervix: The uterus measures 10.2 x 5.1 x 7.2 cm (vol = cm3). Endometrial stripe measures 5.6 mm. Cervical nabothian cyst. Right adnexa: The right ovary measures 3.2 x 2.4 x 2.4 cm (vol = cm3). 18 x 18 x 17 mm right ovarian simple cyst. No mass. Normal ovarian blood flow. Left adnexa: The left ovary measures 5.3 x 3.8 x 4.4 cm (vol = cm3). 2.2 x 2.0 x 1.8 cm and 3.9 x 3.3 x 3.5 cm complex left ovarian cysts. No mass. Normal ovarian blood flow. Intraperitoneal space: Large amount free pelvic fluid containing low-level echoes suggesting complication by hemorrhage or infection. Urinary bladder: Normal. IMPRESSION: 1. Normal Doppler flow to each ovary. No evidence of ovarian torsion. 2. 18 x 18 x 17 mm right ovarian simple cyst. 3. 2.2 x 2.0 x 1.8 cm and 3.9 x 3.3 x 3.5 cm complex left ovarian cysts. 4. Large amount free pelvic fluid containing low-level echoes suggesting complication by hemorrhage or infection. Dictated and Authenticated by: Den Diggs MD. Ordering:CLARISSE Landeros MD
[2021-04-08 23:58] VITALS: BP 120/74; PULSE 77; O2SAT 95
[2021-04-08 23:59] VITALS: O2SAT 95
[2021-04-09] VITALS (34 sets, daily range): BP systolic 76–122; BP diastolic 33–81; PULSE 56–80; RESP 14–22; TEMP 36.5–37.3; O2SAT 93–100; BMI 23.1
[2021-04-09 00:08] LABS: HCG Quant, Pregnancy 1414 mIU/mL (1-3)
[2021-04-09 00:22] LABS: ETHANOL BLOOD 3.2 mg/dL (<3)
[2021-04-09 00:36] LABS: COVID-19 PCR Negative (Negative)
--- NOTE | 2021-04-09 00:46 | HPE_ITS ---
Date of service: 04/09/21 Time of Service: 00:46 Assessment and Plan Assessment and plan (1) History of alcohol use: Status: None (2) Contraception: Status: None Qualifiers: Contraceptive type: pill (3) Left ovarian cyst: Status: Acute (4) Tobacco use: Status: Acute (5) Positive test: Status: Acute Assessment and plan: Unplanned . Quant hCG approximately 1414mIU/ml. No evidence of an IUP on pelvic ultrasound however it is unclear if this is an early IUP or an ectopic. The plan at this time is to admit her for observation and if there is a change in vital signs during the night to perform a emergency laparoscopic salpingectomy (6) Left lower quadrant pain: Status: Acute Assessment and plan: Pain is currently mild on physical exam no evidence of an acute abdomen or findings that would necessitate surgery at this tonight. I feel comfortable observing the patient overnight and planning evacuation of he moperitoneum in the morning. After is on the differential however physical examination is not convincing for an ectopic . (7) Free fluid in pelvis: Status: Acute Assessment and plan: Highly likely that this is a ruptured corpus luteum cyst with an incidental early . She will be n.p.o. with exception of sips of fluid overnight and will proceed with plans for evacuation of pelvic free fluid in the morning. History of Present Illness History of Present Illness Chief Complaint: LLQ pain, n/v Narrative: Pt is a 40yo female with LMP 2 weeks ago who presented to [facility] ED this evening with report of episode of sharp L sided pelvic pain last evening during an episode of consensual sexual intercourse. The pain was accompanied by an episode of nausea and emesis x1. The pain then subsided and today has been present as a dull ache. No further emesis. She presented to the ED for further evaluation. Pt has been using Progestin only pills for BC thru [facility]. Has hx of headaches and is a tobacco user so EE containing OCPs were contraindicated. Review of Systems Constitutional Constitutional: Reports difficulty sleeping (nightmares with nicotine patch) and Reports headache(s) ENT Ears, Nose, Mouth, and Throat: Reports headache(s) Cardiovascular Cardiovascular: Reports system reviewed and no additional complaints, except as documented Respiratory Respiratory: Reports system reviewed and no additional complaints, except as documented Gastrointestinal Gastrointestinal: Reports nausea and Reports vomiting (04/08/21 during episode of LLQ pain) Genitourinary Genitourinary: Denies abnormal menses, Denies abnormal vaginal bleeding and Denies metrorrhagia Comments: Pt does not desire at this time. Musculoskeletal Musculoskeletal: Reports system reviewed and no additional complaints, except as documented Integumentary/Breasts Skin/Breast: Reports system reviewed and no additional complaints, except as documented Neurologic Neurologic: Reports headache(s) Psychiatric Psychiatric: Reports anxiety and Reports depression Comments: Is in the process of her . Currently does not have custody of her children. She is planning to visit them this weekend. She has a new partner who she reports a good relationship with. Her alcohol consumption has become a problem for her and she recently started therapy with a counselor and is using Antabuse prescribed by her PCP. [facility] Medical History History of alcohol use Recently started Antabuse. History of depression Zoloft x6mo. Tobacco use Social History (Updated 04/09/21 @ 01:01 by Steff Mock MD) Smoking/Tobacco Use Status: Current every day Tobacco Type: cigarettes Smoking risk assessment performed?: Yes Alcohol Intake: current Alcohol Intake frequency: 3 or more drinks per day Alcohol type: beer, wine and hard liquor Drug use: Occasionally Substance use type: marijuana, club/videogame designer drugs and other Household members: other Details: Cordell who has custody of 2 children Number of Children: 2 Communication Needs: None current occupation: owns a diner Sexually active: Yes Do you feel safe at home: Yes Do you feel safe in your relationship?: Yes History History 3 Para 2 Hx # Term Pregnancies 2 Multiple births Hx # Pregnancies 0 Ectopic pregnancies AB induced 1 Hx Number of Living Children 2 AB spontaneous Past Pregnancies Del. Date GA/Weeks # Outcome Route Wgt Sex Labor Lgth Anesthes ia Location Prov Complic 02/19/11 40 No Successful vaginal 6 lb 11 oz Male 09/28/11 8 No Unsuccessful 07/09/15 40 No Successful vaginal 7 lb 7 oz Female Delivery Date: 02/19/11 [facility] Steff [facility]est[facility] Delivery Date: 09/28/11 Ste[facility] [place] Delivery Date: 07/09/15 Steff [facility]iz [place] Allergies and Home Medications Allergies Allergy/AdvReac Type Severity Reaction Status Date / Time carbamazepine [From Tegretol] Allergy Unknown RASH / LEGS Unverified 11/07/20 16:05 gabapentin Allergy Skin Rash Unverified 11/07/20 16:05 Home Medications Medication Instructions Recorded Confirmed Type naproxen sodium 550 mg PO Q12H PRN #60 tab-cap 09/30/16 11/07/20 History sumatriptan succinate 6 mg SQ PRN PRN 04/08/17 11/07/20 History norethindrone (contraceptive) 0.35 mg PO DAILY 03/22/20 04/08/21 History [Tulana] dextroamphetamine-amphetamine 20 mg PO DAILY 11/07/20 11/07/20 History [Adderall XR] diphenhydramine HCl 25 mg PO PRN PRN 11/07/20 11/07/20 History docosahexaenoic acid-epa 1 cap PO DAILY 11/07/20 11/07/20 History mirtazapine 15 mg PO HS 11/07/20 11/07/20 History multivitamin 1 tab PO DAILY 11/07/20 04/08/21 History naltrexone 25 mg PO HS 11/07/20 04/08/21 History propranolol 10 mg PO PRN PRN 11/07/20 11/07/20 History Exam Narrative Exam Narrative: Presentation to the emergency department she received a dose of Ativan for anxiety but has not required analgesics Const General: no acute distress and anxious Nutritional Appearance: average body habitus Orientation: alert, awake and oriented x3 Resp Effort & Inspection: normal respiratory effort Auscultation: clear to auscultation bilaterally GI Inspection: normal to inspection Palpation: soft, no hepatosplenomegaly, not firm, no masses and nontender (No rebound or referred pain.) Auscultation: normal bowel sounds Rectal Exam - female: deferred General: deferred (I reviewed ultrasound report and images.) Back/Spine/Pelvis Back: no CVA tenderness Skin General skin exam: no rashes or lesions noted Extrem General: normal to inspection, full ROM and capillary refill normal Psych Appearance: grossly normal Mental Status: mental status grossly normal Speech and Movement: speech and movement normal Mood: anxious mood and dysthymic mood Affect: sad Attitude: cooperative Thought Process: normal Thought Content: normal Insight: insight good Judgment: judgment good Results Labs Result diagrams: 04/08/21 21:48 04/08/21 21:48 Labs: Laboratory Results - last 24 hr 04/08/21 04/08/21 04/08/21 21:48 21:48 21:48 WBC 8.37 RBC 4.45 Hgb 14.0 Hct 42.9 MCV 96.4 H MCH 31.5 MCHC 32.6 RDW 12.3 Plt Count 247 MPV 10.9 Immature Gran % 0.2 Neutrophils % 70.7 Lymphocytes % 19.6 Monocytes % 7.8 Eosinophils % 1.3 Basophils % 0.4 Nucleated RBC % 0 Absolute Neutrophils 5.92 Absolute Lymphocytes 1.64 Absolute Monocytes 0.65 Absolute Eosinophils 0.11 Absolute Basophils 0.03 Sodium 139 Potassium 3.3 L Chloride 102 Carbon Dioxide 26.6 Anion Gap 10.4 BUN 14 Creatinine 0.8 Estimated GFR/1.73 m2 >= 60.00 Glucose 86 Calcium 9.0 Total Bilirubin 0.8 AST 12 L ALT 20 Alkaline Phosphatase 55 Total Protein 7.9 Albumin 4.1 Serum HCG, Qual Positive A Beta HCG, Quant Ethyl Alcohol COVID-19 Source SARS-CoV-2 (PCR) 04/08/21 04/08/21 04/08/21 21:48 23:40 23:50 WBC RBC Hgb Hct MCV MCH MCHC RDW Plt Count MPV Immature Gran % Neutrophils % Lymphocytes % Monocytes % Eosinophils % Basophils % Nucleated RBC % Absolute Neutrophils Absolute Lymphocytes Absolute Monocytes Absolute Eosinophils Absolute Basophils Sodium Potassium Chloride Carbon Dioxide Anion Gap BUN Creatinine Estimated GFR/1.73 m2 Glucose Calcium Total Bilirubin AST ALT Alkaline Phosphatase Total Protein Albumin Serum HCG, Qual Beta HCG, Quant 1414 H Ethyl Alcohol 3.2 COVID-19 Source Nasopharyx SARS-CoV-2 (PCR) Negative Last Vital Signs Temp 97.0 F L 04/08/21 21:24 Pulse 85 04/08/21 23:48 Resp 16 04/08/21 23:48 BP 120/74 04/08/21 23:48 Pulse Ox 99 04/08/21 23:48 COVID-19 Screening Have you, or household traveled for leisure in last 14 days?: No Had IN PERSON contact w/suspected or confirmed C-19 person: No
[2021-04-09] MEDS: Lactated Ringers 1,000 ML 125 ML IV ×2 (02:51→13:26)
[2021-04-09] MEDS: LORazepam 1 MG TAB PO/SL (02:53)
[2021-04-09] MEDS: Acetaminophen 325 MG TAB 650 MG PO (02:53)
--- NOTE | 2021-04-09 08:05 | W.PM.PROGNOT ---
Date of Service Date of service: 04/09/21 Time of Service: 08:06 Assessment and Plan Assessment and plan (1) Free fluid in pelvis: Status: Acute Assessment and plan: Preop exam unremarkable. Pt with stable vital signs overnight. NPO except for sips of clear liquids. Pt signed informed consent after being counseled about risks of procedure including bleeding, infection and injury to bowel bladder and blood vessels with the introduction of the trochar during entry into the abdomen. She was counseled about risk of damage to the ureter. If there appears to be an ectopic the adnexa involved will be removed. Pt is aware that the laparoscopic procedure may result in SAB if the is intrauterine. (2) Positive test: Status: Acute Assessment and plan: Thickened ES w/o IUP. hCG is low enough that viable IUP may be present but not visible. (3) Left lower quadrant pain: Status: Acute Assessment and plan: currently stable. (4) History of alcohol use: Status: None Assessment and plan: Blood ETOH level was initially elevated on admission. No withdrawal sx overnight. Subjective Subjective Patient reports: still having pain, tolerating liquids well, voiding w/o difficulty and no bowel movement; denies diarrhea, vomiting and shortness of breath Interval history since last seen: Did not sleep well last night. Anxious about the pending surgery. RN recommended that she be on ETOH withdrawal protocol secondary to ETOH hx. No withdrawal sx overnight. Exam Const General: no acute distress Nutritional Appearance: average body habitus Orientation: alert, awake and oriented x3 Resp Effort & Inspection: normal respiratory effort Auscultation: clear to auscultation bilaterally Cardio Rate: regular rate Rhythm: regular rhythm GI Inspection: normal to inspection Palpation: soft, no hepatosplenomegaly and tender periumbilically; not in the LLQ, not in the RLQ and not suprapubicly Percussion: normal to percussion Auscultation: normal bowel sounds Rectal Exam - female: deferred General: deferred Skin General skin exam: no rashes or lesions noted Extrem General: normal to inspection, full ROM and capillary refill normal Psych Appearance: grossly normal Mental Status: mental status grossly normal Speech and Movement: speech and movement normal Mood: congruent mood Affect: sad Objective Last Vital Signs Temp 98.2 F 04/09/21 06:00 Pulse 72 04/09/21 06:00 Resp 18 04/09/21 06:00 BP 108/73 04/09/21 06:00 Pulse Ox 99 04/09/21 06:00 Laboratory Results - last 24 hr 04/08/21 04/08/21 04/08/21 21:48 21:48 21:48 WBC 8.37 RBC 4.45 Hgb 14.0 Hct 42.9 MCV 96.4 H MCH 31.5 MCHC 32.6 RDW 12.3 Plt Count 247 MPV 10.9 Immature Gran % 0.2 Neutrophils % 70.7 Lymphocytes % 19.6 Monocytes % 7.8 Eosinophils % 1.3 Basophils % 0.4 Nucleated RBC % 0 Absolute Neutrophils 5.92 Absolute Lymphocytes 1.64 Absolute Monocytes 0.65 Absolute Eosinophils 0.11 Absolute Basophils 0.03 Sodium 139 Potassium 3.3 L Chloride 102 Carbon Dioxide 26.6 Anion Gap 10.4 BUN 14 Creatinine 0.8 Estimated GFR/1.73 m2 >= 60.00 Glucose 86 Calcium 9.0 Total Bilirubin 0.8 AST 12 L ALT 20 Alkaline Phosphatase 55 Total Protein 7.9 Albumin 4.1 Serum HCG, Qual Positive A Beta HCG, Quant Ethyl Alcohol COVID-19 Source SARS-CoV-2 (PCR) Patient ABO/Rh Antibody Screen 04/08/21 04/08/21 04/08/21 21:48 23:40 23:40 WBC RBC Hgb Hct MCV MCH MCHC RDW Plt Count MPV Immature Gran % Neutrophils % Lymphocytes % Monocytes % Eosinophils % Basophils % Nucleated RBC % Absolute Neutrophils Absolute Lymphocytes Absolute Monocytes Absolute Eosinophils Absolute Basophils Sodium Potassium Chloride Carbon Dioxide Anion Gap BUN Creatinine Estimated GFR/1.73 m2 Glucose Calcium Total Bilirubin AST ALT Alkaline Phosphatase Total Protein Albumin Serum HCG, Qual Beta HCG, Quant 1414 H Ethyl Alcohol 3.2 COVID-19 Source SARS-CoV-2 (PCR) Patient ABO/Rh A Positive Antibody Screen Negative 04/08/21 23:50 WBC RBC Hgb Hct MCV MCH MCHC RDW Plt Count MPV Immature Gran % Neutrophils % Lymphocytes % Monocytes % Eosinophils % Basophils % Nucleated RBC % Absolute Neutrophils Absolute Lymphocytes Absolute Monocytes Absolute Eosinophils Absolute Basophils Sodium Potassium Chloride Carbon Dioxide Anion Gap BUN Creatinine Estimated GFR/1.73 m2 Glucose Calcium Total Bilirubin AST ALT Alkaline Phosphatase Total Protein Albumin Serum HCG, Qual Beta HCG, Quant Ethyl Alcohol COVID-19 Source Nasopharyx SARS-CoV-2 (PCR) Negative Patient ABO/Rh Antibody Screen
--- NOTE | 2021-04-09 08:37 | INITIAL_ITS ---
- If Service Date Differs Date of service: 04/09/21 Time of Service: 08:37 Care Management Initial Assess REASON FOR HOSPITALIZATION:: Left lower quadrant pain, left ovarian cyst, and HCG. PAST MEDICAL HISTORY/PAST SURGICAL HISTORY:: Medical History: History of alcohol use - Recently started Antabuse. History of depression - Zoloft x6mo. and Tobacco use. No surgical history of record. PREVIOUS FUNCTIONAL STATUS/SOCIAL/FAMILY SUPPORTS:: Steff lives in [place] with her partner, Ferny. ADVANCE DIRECTIVES:: None on file; Has patient been provided with info about the portal/API?: Yes CODE STATUS:: Full Code INSURANCE COVERAGE / FINANCIAL ISSUES:: [facility] [employer] [facility] ([employer]). PRIMARY CARE PHYSICIAN:: None; POTENTIAL DISCHARGE NEEDS:: Follow up appointment with PCP and gynecology. PATIENT/FAMILY EDUCATION NEEDS:: Discharge instructions, limitations, follow up plan of care, including Ask Me Three and self management. ANTICIPATED BARRIERS TO DISCHARGE:: None anticipated at this time. TRANSPORTATION:: Via private vehicle with family. PLAN:: Anticipate Steff will be discharged home with no new services when medically cleared by provider.
--- NOTE | 2021-04-09 09:44 | ANES.PREOP_ITS ---
General Info Date of Service Date Performed: 04/09/21 Height: 5 ft 4 in Weight: 61.3 kg Body Mass Index (BMI): 23.1 Surgical Procedure: Operation Date: 04/09/21 10:40 Proposed Procedures Side Surgeon p Ovarian Cystectomy Laparoscopic Steff Mock MD Meds Allergies and Home Medications Allergies Allergy/AdvReac Type Severity Reaction Status Date / Time carbamazepine [From Tegretol] Allergy Unknown RASH / LEGS Unverified 11/07/20 16:05 gabapentin Allergy Skin Rash Unverified 11/07/20 16:05 Home Medication Medication Instructions Recorded naproxen sodium 550 mg PO Q12H PRN #60 tab-cap 09/30/16 sumatriptan succinate 6 mg SQ PRN PRN 04/08/17 norethindrone (contraceptive) 0.35 mg PO DAILY 03/22/20 [Tulana] dextroamphetamine-amphetamine 20 mg PO DAILY 11/07/20 [Adderall XR] diphenhydramine HCl 25 mg PO PRN PRN 11/07/20 docosahexaenoic acid-epa 1 cap PO DAILY 11/07/20 mirtazapine 15 mg PO HS 11/07/20 multivitamin 1 tab PO DAILY 11/07/20 naltrexone 25 mg PO HS 11/07/20 propranolol 10 mg PO PRN PRN 11/07/20 Current Visit Medications: Current Medications Generic Name Dose Route Start Last Admin Trade Name Freq PRN Reason Stop Dose Admin Acetaminophen 650 mg 04/09/21 00:43 04/09/21 02:53 Acetaminophen 325 Mg Tab PO 650 mg Q4H PRN PRN Administration Pain Amphetamine Aspartate/Amphetam Sulf 20 mg 04/09/21 08:30 04/09/21 09:35 Amphet Asp/Amphet/D-Amphet 20mg Capcr PO Not Given DAILY HELDER Sodium Chloride 500 mls @ 0 mls/hr 04/09/21 00:34 Saline 500ml Bag IV PRN PRN As Directed Ringer's Solution 1,000 mls @ 125 mls/hr 04/09/21 00:45 04/09/21 02:51 IV 125 mls/hr INFUSION HELDER Administration IV Miscellaneous Supplies 1 each 04/09/21 00:45 Iv Access IV DIRECTED HELDER Lorazepam 0 mg 04/09/21 02:34 04/09/21 02:53 Lorazepam 1 Mg Tab PO/SL 1 mg DIRECTED PRN Administration Mirtazapine 15 mg 04/09/21 22:00 Mirtazapine 15 Mg Tab PO HS HELDER Naltrexone HCl 25 mg 04/09/21 22:00 Naltrexone 50 Mg Tab PO HS HELDER Ondansetron HCl 0 mg 04/09/21 00:43 Ondansetron 4 Mg/2 Ml Vial IVP Q6H PRN PRN Propranolol HCl 10 mg 04/09/21 00:44 Propranolol 10 Mg Tab PO PRN PRN Sodium Chloride 0 ml 04/09/21 00:34 Normal Saline Flush 10 Ml Syr IVP PRN PRN PFSH Active Problems Active Problems: Problem Status Onset Code Free fluid in pelvis R18.8 Left lower quadrant pain R10.32 Positive test Z32.01 Left ovarian cyst N83.202 Tobacco use Z72.0 Medical History Medical History History of alcohol use Recently started Naltrexone History of depression Zoloft x6mo. Tobacco use Tobacco Smoking/Tobacco Use Status: Current every day Tobacco Type: cigarettes Alcohol Alcohol Intake: current Alcohol intake frequency: 3 or more drinks per day Alcohol type: beer, wine and hard liquor Substance Use Substance use: Occasionally Substance use type: marijuana, club/naval designer drugs and other Prental History History 3 Para 2 Hx # Term Pregnancies 2 Multiple births Hx # Pregnancies 0 Ectopic pregnancies AB induced 1 Hx Number of Living Children 2 AB spontaneous Past Pregnancies Del. Date GA/Weeks # Outcome Route Wgt Sex [facility] No Successful vaginal 3033.399 g Male 09/28/11 8 No Unsuccessful 07/09/15 40 No Successful vaginal 3373.593 g Female Delivery Date: 02/19/11 [facility] Steff Celest[place] Delivery Date: 09/28/11 Steff [place] Delivery Date: 07/09/15 Steff Ortiz Vital Signs and Lab Results Vital Signs Most Recent Vital Signs in EMR: Most Recent Vital Signs Temp Pulse Resp BP Pulse Ox 37.3 C 62 18 107/67 98 04/09/21 09:41 04/09/21 09:41 04/09/21 09:41 04/09/21 09:41 04/09/21 09:41 Lab Results Result Diagrams: 04/08/21 21:48 04/08/21 21:48 Blood Type / Crossmatch: Patient ABO/Rh A Positive 04/08/21 23:40 04/08/21 Antibody Screen Negative 04/08/21 23:40 04/08/21 Complete Blood Count: White Blood Count 8.37 10^3/uL (4.4-10.8) 04/08/21 21:48 04/08/21 Red Blood Count 4.45 10^6/uL (3.93-5.22) 04/08/21 21:48 04/08/21 Hemoglobin 14.0 g/dL (11.2-15.7) 04/08/21 21:48 04/08/21 Hematocrit 42.9 % (36.0-46.0) 04/08/21 21:48 04/08/21 Platelet Count 247 10^3/uL (130-400) 04/08/21 21:48 04/08/21 Complete Metabolic Panel: Sodium Level 139 mmol/L (136-145) 04/08/21 21:48 04/08/21 Potassium Level 3.3 mmol/L (3.5-5.1) L 04/08/21 21:48 04/08/21 Chloride Level 102 mmol/L (98-107) 04/08/21 21:48 04/08/21 Carbon Dioxide Level 26.6 mmol/L (21.0-32.0) 04/08/21 21:48 04/08/21 Blood Urea Nitrogen 14 mg/dL (7-18) 04/08/21 21:48 04/08/21 Creatinine 0.8 mg/dL (0.55-1.02) 04/08/21 21:48 04/08/21 Calcium Level 9.0 mg/dL (8.5-10.1) 04/08/21 21:48 04/08/21 Albumin 4.1 g/dL (3.4-5.0) 04/08/21 21:48 04/08/21 Glucose Level 86 mg/dL (74-106) 04/08/21 21:48 04/08/21 Liver Function Panel: Alanine Aminotransferase (ALT/SGPT) 20 U/L (14-59) 04/08/21 21:48 04/08/21 Aspartate Amino Transf (AST/SGOT) 12 U/L (15-37) L 04/08/21 21:48 03/28 01/18 Coagulation Panel: No Data to Display Cardiac Panel: No Data to Display Arterial Blood Gas: No Data to Display Venous Blood Gas: No Data to Display Pancreas Panel: No Data to Display Thyroid Panel: No Data to Display Infectious Disease: Coronavirus (COVID-19)(PCR) Negative (Negative) 04/08/21 23:50 04/08/21 Coronavirus 2019 Source Nasopharyx 04/08/21 23:50 04/08/21 Blood Cultures: No Data to Display Toxicology Panel: Ethyl Alcohol Level 3.2 mg/dL (<3) 04/08/21 23:40 04/08/21 Panel: Serum HCG, Qualitative Positive A 04/08/21 21:48 04/08/21 Beta HCG, Quantitative 1414 mIU/mL (1-3) H 04/08/21 21:48 04/08/21 Imaging and Studies Imaging and Studies EKG Summary:: Normal Sinus Anesthesia Assessment and Plan Anesthesia History Personal History: No History of Anesthesia Complications Family History: No Family History of Anesthesia Complications Exercise Tolerance Exercise Tolerance: Metabolic Equivalents>4 Pertinent Negatives Pertinent Negatives: No Symptoms of GERD, No Major Cardiovascular Symptoms or Complaints, No Major Pulmonary Symptoms or Complaints (+ smoker / marijuana ), No History of CVA/TIA and Other (+etoh 6-8 per day ) Cardiac & Pulmonary Exam Cardiac Exam: Normal S1/S2 Heart Sounds Pulmonary Exam: Clear Bilateral Breath Sounds Airway Exam Known Difficult Airway: No Mallampati Class: 4 Mouth Opening: Narrow (< 3cm) Thyromental Distance: Less than 3 cm Neck Range of Motion: Full ROM Neck Circumference: Normal Teeth Condition: Normal Dentition ASA Classification ASA Score: ASA 2 Emergency Case?: Yes NPO Status NPO Status: NPO Clears >2 hours, Solids >8 hours Status Status: Positive HCG and Other (Question ectopic ) Anesthesia Plan Anesthesia Technique: General Anesthesia Airway Planned: Endotracheal Tube Monitors Used: Standard Monitors
--- NOTE | 2021-04-09 11:24 | OVAR_PTH ---
PATIENT: Steff Lopes LOC: U#:[id number] AGE/SX: 40/F ROOM: RE04/09/[address]: Steff Mock : 1980 BED: A DIS: 04/09/2021 SPEC #: [id number] RECD: 04/09/21 12:41 STATUS: MARTHA REQ #: [id number] HAYLEE: 04/09/21 11:[address]: Steff Mock DEPT: Surgical Specimen RECD BY: Jacey Nixon ENTERED: 04/09/21 12:42 SP TYPE: GABINOR LANI DR: None Tissues: 1 - OVARY NOT TUMOR W OR W/O TUBES Procedures: GROSS AND MICRO LEVEL 4 Comments: [id number]
[2021-04-09] MEDS: Bupivacaine 0.25% Pres-Free 30 ML VIAL (11:41)
--- NOTE | 2021-04-09 12:12 | DSE_ITS ---
Date of service: 04/09/21 Time of Service: 12:12 DS: Diagnosis Discharge Diagnosis (1) Free fluid in pelvis: Status: Acute (2) Positive test: Status: Acute (3) Left lower quadrant pain: Status: Acute (4) History of alcohol use: Status: None (5) History of left salpingo-oophorectomy: Status: Acute Discharge Plan Disposition Patient Disposition: HOME Condition: Fair Discharge Details Reason For Visit: L LOWER QUADRANT PAIN, L OVARIAN CYST, + HCG Admit Date/Time: 04/09/21 00:35 Admit Provider: Steff Mock Attending Provider: Steff Mock Primary Care Provider: None,None Hospital Course Hospital Course: Patient is a 40-year-old female admitted through the emergency department at [facility] with left lower quadrant pain, hemoperitoneum, no evidence of a intrauterine , and a hCG of 1440 mIU/ml. She underwent a laparoscopic left salpingo-oophorectomy and evacuation of hemoperitoneum on 04/09/2021. Pathology is currently pending on the surgical specimen. She will be discharged home with serial hCG follow-up at [facility]. Patient does not desire future pregnancies and if it appears that she has a viable adherent she will be referred to [facility] for treatment options. Home Meds and New Rx's Prescriptions: No Action naproxen sodium 550 MG tablet 550 mg PO Q12H PRN Qty: 60 RF: 0 oxycodone-acetaminophen [Percocet] 5-325 mg tablet 1 tab PO Q6H MDD 4 PRN (Reason: pain) Qty: 7 RF: 0 ibuprofen 600 mg tablet 600 mg PO Q6H PRN (Reason: pain) Qty: 30 RF: 0 sumatriptan succinate 6 MG/0.5 ML solution 6 mg SQ PRN PRNRF: 0 norethindrone (contraceptive) [Tulana] 0.35 mg Tablet 0.35 mg PO DAILY RF: 0 multivitamin Tablet 1 tab PO DAILY RF: 0 naltrexone 50 mg Tablet 25 mg PO HS RF: 0 propranolol 10 mg Tablet 10 mg PO PRN PRNRF: 0 dextroamphetamine-amphetamine [Adderall XR] 20 mg Capsule,Extended Release 24hr 20 mg PO DAILY RF: 0 diphenhydramine HCl 25 mg Tablet 25 mg PO PRN PRNRF: 0 mirtazapine 15 mg Tablet 15 mg PO HS RF: 0 docosahexaenoic acid-epa Capsule 1 cap PO DAILY RF: 0 Discharge Instructions Additional Instructions: You will be given an appointment to return to the office early next week. Prior to the office visit we will have an appointment for a lab test to check your hormone level. He can anticipate vaginal bleeding over the next several days. I recommend that you take ibuprofen and will be for pain and I will give a prescription for stronger pain medication in the form of Percocet 1 tablet every 6 hours with the first 48 hours. At the time of your next office visit we can discuss different contraceptive methods and you are currently using. Do not have intercourse or put anything in your vagina until your postop visit. DO NOT TAKE NALTREXONE WHEN YOU ARE TAKING PERCOCET. Stand Alone Forms: [facility] Post Gynecology Surgery, Nursing Discharge Form Referrals: Steff Mock MD [ [facility] STAFF PHYSICIAN] - 04/16/21 10:00 am Activity:: Activity as Tolerated Equipment/Supplies:: No Equipment Needed Diet:: As Tolerated Discharge Orders Discharge Orders: Discharge Order (Routine); Ordered 04/09/21 Ordered By: Steff Mock DS: Summary Time Spent with Patient providing and/or coordinating discharge services: Less than 30 minutes Status at Discharge Functional status at discharge: independent ambulation Overall status at discharge: patient is back to baseline Mental Status: mental status grossly normal Speech and Movement: speech and movement normal Mood: congruent mood Affect: normal affect Exam Psych Mental Status: mental status grossly normal Speech and Movement: speech and movement normal Mood: congruent mood Affect: normal affect DS: Data Vitals/I&O Vitals and I&O: Vital Signs Temperature 99.1 F 04/09/21 09:41 Temperature Source Temporal Artery Scan 04/09/21 09:41 Pulse 62 04/09/21 09:41 Pulse Rhythm Regular 04/09/21 08:25 Respiratory Rate 18 04/09/21 09:41 Respiratory Effort Non-Labored 04/09/21 08:25 Respiratory Depth Normal 04/09/21 08:25 Respiratory Pattern Normal 04/09/21 08:25 Blood Pressure 107/67 04/09/21 09:41 Blood Pressure Mean 66 04/09/21 01:16 Blood Pressure Position Sitting 04/08/21 21:24 Pulse Oximetry 98 04/09/21 09:41 Oxygen Delivery Method Room Air 04/09/21 09:41 Oxygen Flow Rate 0 04/09/21 09:41 Pain Level 6 04/09/21 09:41 Comment 04/09/21 06:00 Intake & Output 04/08/21 04/09/21 04/09/21 23:59 11:59 23:59 Intake Total 500 / 500 Output Total 650 / 650 Balance -150 / -150 Weight 148 lb 5.938 oz 135 lb 2.294 oz Intake: IV 500 / 500 Output: Urine 650 / 650 Other: Urine Color Straw Light Amy Urine Appearance Clear Urine Odor Normal Voiding Methods Toilet Data Completed and Pending Labs on day of discharge: Labs from last 24 hours 04/08/21 04/08/21 04/08/21 23:50 23:40 23:40 WBC RBC Hgb Hct MCV MCH MCHC RDW Plt Count MPV Immature Gran % Neutrophils % Lymphocytes % Monocytes % Eosinophils % Basophils % Nucleated RBC % Absolute Neutrophils Absolute Lymphocytes Absolute Monocytes Absolute Eosinophils Absolute Basophils Sodium Potassium Chloride Carbon Dioxide Anion Gap BUN Creatinine Estimated GFR/1.73 m2 Glucose Calcium Total Bilirubin AST ALT Alkaline Phosphatase Total Protein Albumin Serum HCG, Qual Beta HCG, Quant Urine Color Urine Clarity Urine pH Ur Specific [place] Urine Protein Urine Ketones Urine Blood Urine Nitrite Urine Bilirubin Urine Urobilinogen Ur Leukocyte Esterase Urine Glucose Ethyl Alcohol 3.2 COVID-19 Source Nasopharyx SARS-CoV-2 (PCR) Negative Patient ABO/Rh A Positive Antibody Screen Negative 04/08/21 04/08/21 04/08/21 22:55 21:48 21:48 WBC RBC Hgb Hct MCV MCH MCHC RDW Plt Count MPV Immature Gran % Neutrophils % Lymphocytes % Monocytes % Eosinophils % Basophils % Nucleated RBC % Absolute Neutrophils Absolute Lymphocytes Absolute Monocytes Absolute Eosinophils Absolute Basophils Sodium Potassium Chloride Carbon Dioxide Anion Gap BUN Creatinine Estimated GFR/1.73 m2 Glucose Calcium Total Bilirubin AST ALT Alkaline Phosphatase Total Protein Albumin Serum HCG, Qual Positive A Beta HCG, Quant 1414 H Urine Color Pending Urine Clarity Pending Urine pH Pending Ur Specific [place] Pending Urine Protein Pending Urine Ketones Pending Urine Blood Pending Urine Nitrite Pending Urine Bilirubin Pending Urine Urobilinogen Pending Ur Leukocyte Esterase Pending Urine Glucose Pending Ethyl Alcohol COVID-19 Source SARS-CoV-2 (PCR) Patient ABO/Rh Antibody Screen 04/08/21 04/08/21 21:48 21:48 WBC 8.37 RBC 4.45 Hgb 14.0 Hct 42.9 MCV 96.4 H MCH 31.5 MCHC 32.6 RDW 12.3 Plt Count 247 MPV 10.9 Immature Gran % 0.2 Neutrophils % 70.7 Lymphocytes % 19.6 Monocytes % 7.8 Eosinophils % 1.3 Basophils % 0.4 Nucleated RBC % 0 Absolute Neutrophils 5.92 Absolute Lymphocytes 1.64 Absolute Monocytes 0.65 Absolute Eosinophils 0.11 Absolute Basophils 0.03 Sodium 139 Potassium 3.3 L Chloride 102 Carbon Dioxide 26.6 Anion Gap 10.4 BUN 14 Creatinine 0.8 Estimated GFR/1.73 m2 >= 60.00 Glucose 86 Calcium 9.0 Total Bilirubin 0.8 AST 12 L ALT 20 Alkaline Phosphatase 55 Total Protein 7.9 Albumin 4.1 Serum HCG, Qual Beta HCG, Quant Urine Color Urine Clarity Urine pH Ur Specific [place] Urine Protein Urine Ketones Urine Blood Urine Nitrite Urine Bilirubin Urine Urobilinogen Ur Leukocyte Esterase Urine Glucose Ethyl Alcohol COVID-19 Source SARS-CoV-2 (PCR) Patient ABO/Rh Antibody Screen [facility] Medical History Anxiety Depression History of alcohol use Recently started Naltrexone History of depression Zoloft x6mo. Tobacco use Surgical History (Updated 04/09/21 @ 12:19 by Steff Mock MD) History of left salpingo-oophorectomy 04/09/2021. Laparoscopic evaluation of possible left ovarian ectopic . Social History (Updated 04/09/21 @ 01:01 by Steff Mock MD) Smoking/Tobacco Use Status: Current every day Tobacco Type: cigarettes Smoking risk assessment performed?: Yes Alcohol Intake: current Alcohol Intake frequency: 3 or more drinks per day Alcohol type: beer, wine and hard liquor Drug use: Occasionally Substance use type: marijuana, club/test designer drugs and other Household members: other Details: Cordell who has custody of 2 children Number of Children: 2 Communication Needs: None current occupation: owns a diner Sexually active: Yes Do you feel safe at home: Yes Do you feel safe in your relationship?: Yes History History 3 Para 2 Hx # Term Pregnancies 2 Multiple births Hx # Pregnancies 0 Ectopic pregnancies AB induced 1 Hx Number of Living Children 2 AB spontaneous Past Pregnancies Del. Date GA/Weeks # Outcome Route Wgt Sex Labor Lgth Anesthes ia Location Prov Complic 02/19/11 40 No Successful vaginal 6 lb 11 oz Male 09/28/11 8 No Unsuccessful 07/09/15 40 No Successful vaginal 7 lb 7 oz Female Delivery Date: 02/19/11 [facility] Steff Celestin Delivery Date: 09/28/11 Steff [place] Delivery Date: 07/09/15 Steff Ortiz
[2021-04-09] MEDS: fentaNYL 100 MCG/2 ML VIAL IVP ×2 (12:32→12:53)
--- NOTE | 2021-04-09 12:53 | W.ANESPOSTOP ---
Postoperative Evaluation Date, Time and Location Date Performed: 04/09/21 Time Performed: 12:53 Patient Location: PACU Vital Signs Most Recent Imported Vital Signs: Most Recent Vital Signs Temp Pulse Resp BP Pulse Ox 36.6 C 63 14 117/75 99 04/09/21 12:35 04/09/21 12:35 04/09/21 12:35 04/09/21 12:35 04/09/21 12:35 Pain Score Most Recent Pain Score: Most Recent Pain Score Pain Level 1 04/09/21 09:41 Assessment Mental Status: Arousable with meaningful communication Airway and Respiratory Function: Patent airway with normal (patient baseline) respiratory exam Cardiovascular Function: Hemodynamically Stable Hydration Status: Adequately Hydrated Nausea & Vomiting: No Nausea or Vomiting Pain: Pt. Denies Any Pain Peripheral Nerve Block: Patient did not receive a nerve block
[2021-04-09] MEDS: oxyCODONE 5 mg/Acetaminophen 325 mg TAB PO (15:01)
--- NOTE | 2021-04-09 15:38 | ROE_ITS ---
Date of service: 04/09/21 Time of Service: 15:38 Operative Note Operative Note DATE OF PROCEDURE: 04/09/21 PRE-OP DIAGNOSIS: possible ectopic , hemoperitoneum, LLQ pain, L ovarian cyst. POST-OP DIAGNOSIS: same PROCEDURE: laparoscopic L oophorectomy and left salpingectomy, aspiration of hemoperitoneum. SURGEON: Steff Mock [employer]AVY EQUIPMENT SALES ASSOCIATE: Jo-Ann Leach ANESTHESIA TYPE: General LMA/ETT Refer to Anesthesia Record ESTIMATED BLOOD LOSS: 100 PATHOLOGY: other (L ovary and fallopian tube) COMPLICATIONS: None Patient was transported to: PACU Patient's condition: stable Indications: ?Pt is a 40yo female with LMP 2 weeks ago who presented to [facility] ED on 04/08/21 with report of episode of sharp L sided pelvic and the fi nding of pelvic free fluid, L ovarian mass and thickened endometrial stripe but no IUP with hCG of 1440mIU/ml. Findings: ~100 cc of unclotted blood in posterior cul de sac, enlarged L ovary with small amount of BRB extruding from a small area on the surface. No evidence of ovarian rupture. When the ovary was opened 3cc dark red blood was discharged and 1cm cystic structure within the body of the ovary. Nl L fallopian tube and nl R adnexa. Procedure Description: Patient was taken to the operating room where she was placed in the dorsal supine position and endotracheal anesthesia was administered without difficulty. SCDs were in place. A surgical timeout was performed. She was prepped and draped in the usual sterile fashion. The umbilical fold was infiltrated with quarter percent Marcaine without epinephrine and 12 mm vertical skin incision was made in the umbilicus. Through this incision a varies needle connected to carbon dioxide gas was inserted into the abdomen and intra-abdominal placement confirmed by drop in the intra-abdominal pressure. Once a pneumoperitoneum was established a 12 mm Visiport trocar was introduced into the abdomen under direct visualization. The patient was then placed in Trendelenburg and 2 sites on the abdomen approximately 6 cm diagonal to the right of and left of the umbilical incision were transilluminated the skin infiltrated incised in a direct visualization 2 5 mm ports were placed in the right and left lower quadrants respectively. The abdomen was inspected with the above-noted findings. Suction aspirator was used to evacuate the blood in the posterior culdesac. A LigaSure electrocautery device was used to clamp cauterize and transect the infundibulopelvic ligament of the ovary and across the cornual portion of the left fallopian tube. Once the left fallopian tube and left ovary were attached and the excision site noted to be hemostatic and the Endo Catch bag was placed through the 12 mm port and the left fallopian tube and left ovary were placed into the bag and delivered through the abdominal umbilical incision. The fasc ial incision was extended in order to deliver the specimen through the 12 mm port site. The bag did tear while being delivered through the abdomen however no contents of the bag or spelt into the abdomen and the bag was intact when inspected. The specimen was passed off of the operative field. The pedicle of the infundibulopelvic ligament and left fallopian tube were reinspected noted be hemostatic. Under direct visualization the two 5 mm ports were removed, the pneumoperitoneum reduced, and the umbilical port removed. The fascia of the umbilical port site was reapproximated with interrupted suture of 0 Vicryl. The skin of all trocar sites was reapproximated with 4-0 Monocryl and covered with skin glue. The patient was awakened extubated and transported to recovery area in stable condition. All sponge lap needle counts are correct x2
== END 2021-04-09 15:58 | disposition home or self-care (01) ==
LOC: ER 04-09 00:56 → MS 04-09 01:37
PROVIDERS: Admitting Provider Obstetrics & Gynecology Gynecology; Emergency Provider Physician Assistant; Visit Provider Obstetrics & Gynecology Gynecology
PROC: (CPT 58662; principal; 2021-04-09 10:30)
DX: N80.1 Endometriosis of ovary (principal); N83.8 Other noninflammatory disorders of ovary, fallopian tube and broad ligament; N83.12 Corpus luteum cyst of left ovary; K66.1 Hemoperitoneum; F17.210 Nicotine dependence, cigarettes, uncomplicated; Z32.01 Encounter for pregnancy test, result positive
CPT/HCPCS: 58661; 49322; 36415; 80053; 81025; 86850; 86900; 86901; 87635; 88305; 96361; 96374; 96375; 96376; 99285; 76700; 76830; 76856; 80320; 81003; 84702; 84703; 85025; G0378; J1100; J1885; J2001; J2060; J2405; J2704; J3010

== ENCOUNTER 2021-04-16 03:19 | Outpatient (CLI) | payer OTHER, SELFPAY ==
[2021-04-16 10:53] LABS: HCG Quant, Pregnancy 2303 mIU/mL (1-3)
== END 2021-04-16 03:20 | disposition home or self-care (01) ==
LOC: LBO 03:19
PROVIDERS: Visit Provider Obstetrics & Gynecology Gynecology
DX: Z32.01 Encounter for pregnancy test, result positive (principal)
CPT/HCPCS: 36415; 84702

== ENCOUNTER 2021-04-22 03:21 | Outpatient (CLI) | payer OTHER, SELFPAY ==
[2021-04-22 13:45] LABS: HCG Quant, Pregnancy 3001 mIU/mL (1-3)
== END 2021-04-22 03:22 | disposition home or self-care (01) ==
PROVIDERS: Visit Provider Obstetrics & Gynecology Gynecology
DX: Z32.01 Encounter for pregnancy test, result positive (principal); O20.0 Threatened abortion
CPT/HCPCS: 36415; 84702

== ENCOUNTER 2021-04-22 13:37 | Emergency (ER) | payer OTHER, SELFPAY ==
--- NOTE | 2021-04-22 13:45 | DI.RAD_ITS ---
Exam(s) XR FOOT RT COMPLETE EXAM: XR FOOT RT COMPLETE CLINICAL HISTORY: Right 5th toe and foot pain, R/O Fracture. TECHNIQUE: 2D digital imaging was performed. COMPARISON: No exams were available for comparison FINDINGS: There is a slightly displaced transverse fracture in the proximal half of the proximal phalanx of the 5th toe. Incidentally noted is fusion of the middle and distal phalanges of the same 5th toe. No o ther fractures identified. Lisfranc joint is not diastatic. Incidentally noted is a bipartite media l sesamoid subjacent to the great toe metatarsal head. IMPRESSION: Fifth toe fracture proximal phalanx as described above. Mild displacement. DATA REPOSITORY: RADIATION DOSE DELIVERED:
[2021-04-22 13:50] VITALS: BP 124/79; PULSE 90; TEMP 36.6; O2SAT 97
--- NOTE | 2021-04-22 14:05 | W.ED.GENAD ---
Discharge Plan Disposition Patient Disposition: HOME Condition: Stable Discharge Details Clinical Impression: Fracture of fifth toe, right, closed Primary Care Provider: None,None ED Provider: Araceli Xie Home Meds and New Rx's Prescriptions: No Action hydroxyzine HCl 25 mg tablet 25 mg PO QHS RF: 0 naproxen sodium 550 MG tablet 550 mg PO Q12H PRN Qty: 60 RF: 0 ibuprofen 600 mg tablet 600 mg PO Q6H PRN (Reason: pain) Qty: 30 RF: 0 ondansetron HCl 4 mg tablet 4 mg PO Q6H Qty: 20 RF: 0 multivitamin Tablet 1 tab PO DAILY RF: 0 naltrexone 50 mg Tablet 25 mg PO HS RF: 0 diphenhydramine HCl 25 mg Tablet 25 mg PO PRN PRNRF: 0 docosahexaenoic acid-epa Capsule 1 cap PO DAILY RF: 0 Discharge Instructions Instructions: Toe Fracture (ED) Additional Instructions: Rest ice compression elevation. You do have a little toe fracture. Please follow-up with orthopedics in 3 to 5 days if possible. He may also jaci tape the toes to splint it. Use crutches as needed. Please take Tylenol or Ibuprofen with food every 4-6 hours as needed for pain and swelling. Stand Alone Forms: Work Release Referrals: Shorty Escobedo MD [ [facility] STAFF PHYSICIAN] - Discharge Data Discharge Date/Time-TO BE ENTERED AT DEPARTURE: 04/22/21 15:55 Medical Decision Making 40-year-old female presents to the ER with chief complaint of right foot contusion and pain status post kicking something yesterday. She is ambulatory upon arrival. Has not taken any Tylenol or ibuprofen. She was in the building for some lab work and ultrasound and decided to come also get her foot checked out. She recently had a left oophorectomy and possible ectopic surgery. She was recently seen today by [facility] SERVICES [facility]. Had hCG quant drawn which is 3001 which is elevated from her previous result. Exam(s) XR FOOT RT COMPLETE EXAM: XR FOOT RT COMPLETE CLINICAL HISTORY: Right 5th toe and foot pain, R/O Fracture. TECHNIQUE: 2D digital imaging was performed. COMPARISON: No exams were available for comparison FINDINGS: There is a slightly displaced transverse fracture in the proximal half of the proximal phalanx of the 5th toe. Incidentally noted is fusion of the middle and distal phalanges of the same 5th toe. No other fractures identified. Lisfranc joint is not diastatic. Incidentally noted is a bipartite medial sesamoid subjacent to the great toe metatarsal head. IMPRESSION: Fifth toe fracture proximal phalanx as described above. Mild displacement. Call received from Dr. Damon with [facility] who requested to get a POC urine test so that she can compare it to her hCG blood levels and her urine levels. Will place patient in a postop shoe and crutches. Discussed home care and follow-up with CLINICAL SERVICES SPECIALIST and PCP at length with patient. I did relay the positive test results to Dr. Mock. Patient verbalized understanding. Discussed rest ice compression elevation and use of foot splint. Patient discharged hemodynamically stable in no acute distress. This text was generated using [employer] system, please disregard any oddities of phrase or misspellings. HPI General Mode of arrival: wheelchair. Date/Time Provider Initiated Documentation: 04/22/21 13:52. Limitations to Documentation: no limitations. Information obtained by: patient. HPI Narrative: 40-year-old female presents to the ER with chief complaint of right foot contusion and pain status post kicking something yesterday. She is ambulatory upon arrival. Has not taken any Tylenol or ibuprofen. She was in the building for some lab work and ultrasound and decided to come also get her foot checked out. She recently had a left oophorectomy and possible ectopic surgery. She was recently seen today by CLINICAL SERVICES SPECIALIST. Had hCG quant drawn which is 3001 which is elevated from her previous result. Related Data Home Medications Medication Instructions Recorded Confirmed naproxen sodium 550 mg PO Q12H PRN #60 tab-cap 09/30/16 04/22/21 diphenhydramine HCl 25 mg PO PRN PRN 11/07/20 04/22/21 docosahexaenoic acid-epa 1 cap PO DAILY 11/07/20 04/09/21 multivitamin 1 tab PO DAILY 11/07/20 04/22/21 naltrexone 25 mg PO HS 11/07/20 04/22/21 ibuprofen 600 mg tablet 600 mg PO Q6H PRN #30 tab 04/09/21 04/22/21 hydroxyzine HCl 25 mg tablet 25 mg PO QHS 04/16/21 04/22/21 ondansetron HCl 4 mg tablet 4 mg PO Q6H #20 tab 04/20/21 04/22/21 Previous Rx's Medication Instructions Recorded ibuprofen 600 mg tablet 600 mg PO Q6H PRN #30 tab 04/09/21 ondansetron HCl 4 mg tablet 4 mg PO Q6H #20 tab 04/20/21 Allergies Allergy/AdvReac Type Severity Reaction Status Date / Time carbamazepine [From Tegretol] Allergy Unknown RASH / LEGS Unverified 04/22/21 13:55 gabapentin Allergy Skin Rash Unverified 04/22/21 13:55 General Stated Complaint: Orthopedic KALEY: 4 Review of Systems Narrative: Constitutional: Negative for weight loss, alert and oriented, well groomed, normal body habitus, appears comfortable. Chest: Denies chest pain, palpitations, irregular rhythm, hypertension. Respiratory: Denies Shortness of breath, cough, hemoptysis. GI: Denies abdominal pain, nausea, vomiting, diarrhea, constipation. : Denies dysuria, hematuria, flank pain, rectal bleeding. Musculoskeletal: Complaining of anterior right foot pain status post kicking something PFSH Medical History Abnormal human chorionic gonadotropin (hCG) Abnormal rise. No evidence of IUP. LSO path shows no ectopic . 04/22/21. Methotrexate 50mg/m2 Anxiety Depression History of alcohol use Recently started Naltrexone History of depression Zoloft x6mo. Nausea and vomiting Threatened Tobacco use Surgical History (Updated 04/09/21 @ 12:19 by Steff Mock MD) History of left salpingo-oophorectomy 04/09/2021. Laparoscopic evaluation of possible left ovarian ectopic . Social History (Updated 04/09/21 @ 01:01 by Steff Mock MD) Smoking/Tobacco Use Status: Current every day Tobacco Type: cigarettes Smoking risk assessment performed?: Yes Alcohol Intake: current Alcohol Intake frequency: 3 or more drinks per day Alcohol type: beer, wine and hard liquor Drug use: Occasionally Substance use type: marijuana, club/freelance web designer drugs and other Household members: other Details: Cordell who has custody of 2 children Number of Children: 2 Communication Needs: None current occupation: owns a diner Sexually active: Yes Do you feel safe at home: Yes Do you feel safe in your relationship?: Yes History History 3 Para 2 Hx # Term Pregnancies 2 Multiple births Hx # Pregnancies 0 Ectopic pregnancies AB induced 1 Hx Number of Living Children 2 AB spontaneous Past Pregnancies Del. Date GA/Weeks # Outcome Route Wgt Sex Labor Lgth Anesthesia Location Prov Complic 02/19/11 40 No Successful vaginal 3033.399 g Male 09/28/11 8 No Unsuccessful 07/09/15 40 No Successful vaginal 3373.593 g Female Delivery Date: 02/19/11 [facility] Steff Celest[place] Delivery Date: 09/28/11 Steff [place] Delivery Date: 07/09/15 Steff Ortiz Exam Narrative Exam Narrative: Constitutional: Alert and oriented x3. Appears stated age. Normal body habitus. Head: Normocephalic, no trauma. Eyes: Eyelids symmetrical without lesions, discharge, or swelling. Chest: RRR, Normal S1, S2, distal pulses intact. Resp: Lungs clear to auscultation bilaterally, no wheezes, rales, or rhonchi. Musculoskeletal: Normal gait, 5/5 strength to all four extremities. Right fifth toe contusion, ecchymosis swelling and tenderness with palpation over the proximal toe Skin: No suspicious rashes or lesions. Capillary refill less than 2 sec. Neurologic: Cranial nerves II-XII intact. Alert and oriented x 3. DTR's intact. Hematologic/Lymphatic: No ecchymosis, no lymphadenopathy. Course Vital Signs Vital signs: Vital Signs Temperature 36.6 C 04/22/21 13:50 Pulse 90 04/22/21 13:50 Blood Pressure 124/79 04/22/21 13:50 Pulse Oximetry 97 04/22/21 13:50 Temperature 36.6 C 04/22/21 13:50 Temperature Source Temporal Artery Scan 04/22/21 13:50 Pulse 90 04/22/21 13:50 Respiratory Effort Non-Labored 04/22/21 13:53 Blood Pressure 124/79 04/22/21 13:50 Blood Pressure Position Sitting 04/22/21 13:50 Pulse Oximetry 97 04/22/21 13:50 Oxygen Delivery Method Room Air 04/22/21 13:50 Oxygen Flow Rate 0 04/22/21 13:50 Pain Level 8 04/22/21 13:54
[2021-04-22] MEDS: Acetaminophen 500 MG TAB (14:08)
== END 2021-04-22 15:55 | disposition home or self-care (01) ==
PROVIDERS: Emergency Provider Registered Nurse Emergency
DX: S92.511A Displaced fracture of proximal phalanx of right lesser toe(s), initial encounter for closed fracture (principal); W22.09XA Striking against other stationary object, initial encounter; Z32.01 Encounter for pregnancy test, result positive
CPT/HCPCS: 28510; 73630

== ENCOUNTER 2021-04-30 03:16 | Outpatient (CLI) | payer OTHER, SELFPAY ==
[2021-04-30 16:24] LABS: HCG Quant, Pregnancy 2123 mIU/mL (1-3)
== END 2021-04-30 03:17 | disposition home or self-care (01) ==
LOC: LBO 03:17
PROVIDERS: Visit Provider Obstetrics & Gynecology Gynecology
DX: O02.81 Inappropriate change in quantitative human chorionic gonadotropin (hCG) in early pregnancy (principal); O20.0 Threatened abortion
CPT/HCPCS: 36415; 84702

== ENCOUNTER 2021-06-05 01:10 | Outpatient (CLI) | payer OTHER, SELFPAY ==
[2021-06-05 18:35] LABS: HCG Quant, Pregnancy 1 mIU/mL (1-3)
== END 2021-06-05 01:11 | disposition home or self-care (01) ==
LOC: LOS 01:10
PROVIDERS: Visit Provider Obstetrics & Gynecology Gynecology
DX: O20.0 Threatened abortion (principal)
CPT/HCPCS: 36415; 84702

== ENCOUNTER 2021-10-05 14:12 | Emergency (ER) | payer SELFPAY ==
[2021-10-05 14:25] VITALS: BP 143/101; PULSE 90; RESP 18; TEMP 36.7; O2SAT 97
--- NOTE | 2021-10-05 15:05 | ED.GENADUL_ITS ---
Discharge Plan Disposition Patient Disposition: HOME Condition: Stable Discharge Details Clinical Impression: Lumbar strain Primary Care Provider: None,None ED Provider: Ivana Jiang Home Meds and New Rx's Prescriptions: New methocarbamol 500 mg tablet 500 mg PO Q6H PRN (Reason: muscle spasm) Qty: 14 RF: 0 prednisone 20 mg tablet See Rx Instructions .ROUTE .COMPLEX Qty: 18 RF: 0 Continued hydroxyzine HCl 25 mg tablet 25 mg PO QHS RF: 0 Mirena 20 mcg/24 hours (6 yrs) 52 mg intrauterine device 1 insert intrauterine ONCE Qty: 1 RF: 0 naproxen sodium 550 MG tablet 550 mg PO Q12H PRN Qty: 60 RF: 0 ibuprofen 600 mg tablet 600 mg PO Q6H PRN (Reason: pain) Qty: 30 RF: 0 multivitamin Tablet 1 tab PO DAILY RF: 0 diphenhydramine HCl 25 mg Tablet 25 mg PO PRN PRNRF: 0 docosahexaenoic acid-epa Capsule 1 cap PO DAILY RF: 0 Discharge Instructions Instructions: Low Back Strain (ED) Additional Instructions: Alternate ice and heat to the affected area(s) several times daily for 20 minutes at a time. Alternate tylenol and motrin as needed and directed for pain. Prescriptions for steroids and muscle relaxers have been sent electronically to your pharmacy. You are being sent home with Librium to take as needed and directed for symptoms of alcohol withdrawal. Do not take more than 300 mg in 1 day. Follow-up with your primary care doctor in 1 week. Return to the emergency department with any worsening or new concerning symptoms. Discharge Data Discharge Date/Time-TO BE ENTERED AT DEPARTURE: 10/05/21 16:50 Discharge Physician: Ivana Jiang Medical Decision Making 41-year-old female with a history of daily alcohol and Adderall use presents for lower back pain for the past month, worse over the past few days, worse with movement. No cauda equina symptoms. Does admit to UTI symptoms for the several days. Heart rate and blood pressure upon my assessment within normal limits. Heart rate 70s, blood pressure 114/70. She appears in no acute distress without diaphoresis or tremors. She does not appear to be in acute alcohol withdrawal. She has been reproducible bilateral lumbar paraspinal tenderness and pain with flexion and movement of her back. She has no focal deficits. She is neurovascular intact. Abdomen soft and nontender. Suspect her back pain is musculoskeletal. History and presentation does not appear consistent with cauda equina syndrome, epidural abscess or disc herniation at this time. As she has no focal deficits, do not indication for additional labs or imaging. Will obtain a urinalysis, give a dose of IM Toradol, p.o. methocarbamol and prednisone and reassess. Patient reassessed and she feels much better and feels good to go home. She demonstrates no signs of acute alcohol withdrawal. She is concerned about potentially going through withdrawal in the next 2 days. We will send her home with a few tabs of Librium. She was offered to speak with her wellness health coach but declined that she states she has a counselor she speaks with for her addiction and alcohol. Patient placed on care management list to help arrange for a follow-up appointment with the primary care doctor for reevaluation. Usual and customary return precautions given prior to discharge. Medical Records Medical records reviewed: Yes I reviewed the patient's medical records. Lab Data Lab results reviewed: Yes I reviewed the patient's lab results. Labs: Laboratory Tests Range/Units 10/05/21 15:45 Urine Color (Yellow) Yellow Urine Clarity (Clear) Sl Cloudy Urine pH (5-8) 8.5 H Ur Specific [place] (1.005-1.025) 1.020 Urine Protein (Negative) mg/dL Trace H Urine Ketones (Negative) mg/dL 15 H Urine Blood (Negative) Negative Urine Nitrite (Negative) Negative Urine Bilirubin (Negative) Negative Urine Urobilinogen (Up TO 0.2) EU/dL 1.0 H Ur Leukocyte Esterase (Negative) Negative Urine RBC (0-2) HPF 0-2 Urine WBC (0-5) HPF 3-5 Ur Epithelial Cells (Negative) HPF Few Urine Crystals (Negative) HPF Negative Urine Bacteria (Negative) HPF Negative Urine Casts (Negative) LPF Negative Urine Mucus (Negative) Negative Ur Culture Indicated? No Urine Glucose (Negative) mg/dL Negative HPI General Mode of arrival: ambulatory . Date/Time Provider Initiated Documentation: 10/05/21 14:15 . Limitations to Documentation: no limitations . Information obtained by: patient . HPI Narrative: Pt is a 41yo F daily alcohol use and daily amphetamine use presents for back pain for the past month, worse over the past few days. She describes the pain as sharp achy, worse with movement, standing and bending forward. She states the pain is in her lower back on both sides but worse on the right side with radiation around to her right thigh. She denies any fever, vomiting, abdominal pain, bowel or bladder incontinence, saddle anesthesia, leg weakness or numbness. She states she has been taking naproxen and Tylenol for pain relief. Last medication yesterday. She states she has been a daily alcohol drinker and daily Adderall user for the past 15 years, but worse over the past year. She states she has been drinking 1/5 of liquor daily 11 months ago but states she now drinks 12 to 14 glasses of wine or [place] barely. States her last alcoholic drink was 36 hours ago. She states she has been using Adderall off the street for the past 15 years, but for the past year has been taking 50 to 75 mg daily. Her last use of Adderall was 36 hours ago. She also admits to intermittent urinary frequency, urgency, dysuria and hematuria and was concerned about a possible urinary tract infection. Related Data Home Medications Medication Instructions Recorded Confirmed naproxen sodium 550 mg PO Q12H PRN #60 tab-cap 09/30/16 10/05/21 diphenhydramine HCl 25 mg PO PRN PRN 11/07/20 08/28/21 docosahexaenoic acid-epa 1 cap PO DAILY 11/07/20 10/05/21 multivitamin 1 tab PO DAILY 11/07/20 10/05/21 ibuprofen 600 mg tablet 600 mg PO Q6H PRN #30 tab 04/09/21 10/05/21 hydroxyzine HCl 25 mg tablet 25 mg PO QHS 04/16/21 08/28/21 levonorgestrel 20 mcg/24 hours (7 1 insert INTRAUTERINE ONCE #1 ea 07/25/21 10/05/21 yrs) 52 mg intrauterine device methocarbamol 500 mg PO Q6H PRN #14 tab 10/05/21 prednisone See Rx Instructions .ROUTE 10/05/21 .COMPLEX #18 tab Previous Rx's Medication Instructions Recorded ibuprofen 600 mg tablet 600 mg PO Q6H PRN #30 tab 04/09/21 levonorgestrel 20 mcg/24 hours (7 1 insert INTRAUTERINE ONCE #1 ea 07/25/21 yrs) 52 mg intrauterine device methocarbamol 500 mg PO Q6H PRN #14 tab 10/05/21 prednisone See Rx Instructions .ROUTE 10/05/21 .COMPLEX #18 tab Allergies Allergy/AdvReac Type Severity Reaction Status Date / Time carbamazepine [From Tegretol] Allergy Unknown RASH / LEGS Unverified 10/05/21 14:31 gabapentin Allergy Skin Rash Unverified 10/05/21 14:31 General Stated Complaint: Nk/Back Pain KALEY: 3 Review of Systems All systems reviewed & are unremarkable except as noted in HPI and below Constitutional Constitutional: Reports as per HPI, Denies chills and Denies fever(s) Eyes Eyes: Denies blurry vision ENT Ears, Nose, Mouth, and Throat: Denies dizziness, Denies sore throat and Denies throat swelling Cardiovascular Cardiovascular: Denies chest pain and Denies dyspnea Respiratory Respiratory: Denies cough and Denies dyspnea Gastrointestinal Gastrointestinal: Denies abdominal pain, Denies diarrhea and Denies vomiting Genitourinary Genitourinary: Denies hematuria and Denies dysuria Musculoskeletal Musculoskeletal: Reports back pain and Denies numbness Integumentary/Breasts Skin/Breast: Denies lesions and Denies rash Neurologic Neurologic: Denies dizziness, Denies localized weakness and Denies numbness Allergic/Immunologic Allergic/Immunologic: Denies throat swelling [facility] Medical History Anxiety Contraception 2020. POPs. 06/2021. Mirena IUD. requests Tubal sterilization 02/2022 Depression Encounter for insertion of mirena IUD History of alcohol use Recently started Naltrexone History of depression Zoloft x6mo. IUD (intrauterine device) in place inserted. 06/2021. Tobacco use Surgical History (Updated 07/25/21 @ 17:33 by Steff Mock MD) History of left salpingo-oophorectomy 04/09/2021. Laparoscopic evaluation of possible left ovarian ectopic . Social History (Updated 04/09/21 @ 01:01 by Steff Mock MD) Smoking/Tobacco Use Status: Current every day Tobacco Type: cigarettes Smoking risk assessment performed?: Yes Alcohol Intake: current Alcohol Intake frequency: 3 or more drinks per day Alcohol type: beer, wine and hard liquor Drug use: Occasionally Substance use type: marijuana, club/system designer drugs and other Household members: other Details: Cordell who has custody of 2 children Number of Children: 2 Communication Needs: None current occupation: owns a diner Sexually active: Yes Do you feel safe at home: Yes Do you feel safe in your relationship?: Yes History History 3 Para 2 Hx # Term Pregnancies 2 Multiple births Hx # Pregnancies 0 Ectopic pregnancies AB induced 1 Hx Number of Living Children 2 AB spontaneous Past Pregnancies Del. Date GA/Weeks # Outcome Route Wgt Sex Labor Lgth Anesthes ia Location Prov Complic 02/19/11 40 No Successful vaginal 3033.399 g Male 09/28/11 8 No Unsuccessful 07/09/15 40 No Successful vaginal 3373.593 g Female Delivery Date: 02/19/11 [facility] [place] Delivery Date: 09/28/11 [facility] [place] Delivery Date: 07/09/15 [facility] Exam Const General: cooperative and no acute distress HENMT Head: normal to inspection Face and sinus: normal facial exam Eyes General: appearance normal, both eyes and all related structures EOM: EOM intact bilaterally Neck Neck: normal visual inspection and No submandibular swelling Lymphatic: no lymphadenopathy noted Chest Chest: normal inspection of the chest and no tenderness Resp Effort & Inspection: normal respiratory effort and able to speak in complete sentences Auscultation: clear to auscultation bilaterally Cardio Rate: regular rate Rhythm: regular rhythm GI Inspection: normal to inspection Palpation: soft, not firm, not rigid and nontender Auscultation: normal bowel sounds Back/Spine/Pelvis Thoracic/Lumbar Spine: thoracic and lumbar spine normal to inspection, paraspinal tenderness (b/l lumbar, upper buttock), No thoracic spinal tenderness and No lumbar spinal tenderness Skin General skin exam: no rashes or lesions noted Neuro General: patient alert, patient awake and patient oriented x3 Cognition: normal cognition Speech: speech normal Motor: muscle tone normal throughout and strength 5/5 throughout Sensory Exam: no sensory deficits noted DTR's: Rt Patellar: 2+, Lt Patellar: 2+, Rt Ankle: 2+ and Lt Ankle: 2+ Plantar Reflexes: Equivocal: bilateral (negative babinski b/l) Extrem General: normal to inspection, full ROM, capillary refill normal, no calf tende rness bilaterally and no edema Other: B/L DP/PT pulses intact. Psych Appearance: grossly normal Mental Status: mental status grossly normal Speech and Movement: speech and movement normal Affect: normal affect Course Vital Signs Vital signs: Vital Signs Temperature 98.1 F 10/05/21 14:25 Pulse 90 10/05/21 14:25 Respiratory Rate 18 10/05/21 14:25 Blood Pressure 143/101 H 10/05/21 14:25 Pulse Oximetry 97 10/05/21 14:25 Temperature 98.1 F 10/05/21 14:25 Temperature Source Tympanic 10/05/21 14:25 Pulse 90 10/05/21 14:25 Respiratory Rate 18 10/05/21 14:25 Blood Pressure 143/101 H 10/05/21 14:25 Pulse Oximetry 97 10/05/21 14:25 Oxygen Delivery Method Room Air 10/05/21 14:25 Oxygen Flow Rate 0 10/05/21 14:25 Pain Level 7 10/05/21 14:25 Comment 10/05/21 14:25
[2021-10-05] MEDS: Ketorolac 60 MG/2 ML VIAL IM (15:40)
[2021-10-05] MEDS: Methocarbamol 500 MG TAB PO (15:41)
[2021-10-05] MEDS: predniSONE 20 MG TAB 60 MG PO (15:41)
[2021-10-05 16:07] LABS: Bilirubin Negative (Negative); Blood Negative (Negative); Clarity Sl Cloudy (Clear); Glucose Negative (Negative); Ketones 15 mg/dL (Negative); Leukocyte Esterase Negative (Negative); Nitrite Negative (Negative); pH 8.5 (5-8)
[2021-10-05 16:14] LABS: Bacteria Negative HPF (Negative); C & S Indicated? No; Casts Negative LPF (Negative); Crystals Negative HPF (Negative); Epithelial Cells Few HPF (Negative); Mucus Negative (Negative); RBC 0-2 HPF (0-2)
[2021-10-05 16:51] VITALS: PULSE 87; RESP 16; O2SAT 99
[2021-10-05] MEDS: chlordiazePOXIDE 25 MG CAP 200 MG PO (16:53)
== END 2021-10-05 16:50 | disposition home or self-care (01) ==
PROVIDERS: Emergency Provider Physician Assistant
DX: S39.012A Strain of muscle, fascia and tendon of lower back, initial encounter (principal); X58.XXXA Exposure to other specified factors, initial encounter
CPT/HCPCS: 81025; 96372; 99284; 81003; 81015; 99283; J1885; J7512

== ENCOUNTER 2025-09-30 18:33 | Emergency (ER) | payer OTHER, SELFPAY ==
--- NOTE | 2025-09-30 18:30 | RT.EKG_ITS ---
APPROVED REPORT Exam: Resting ECG Reason for Exam: Chest pain Patient Location: E HR:96 bpm ECG Measurements Heart Rate 96 AXIS NE 124 P 68 QRSd 89 QRS 53 QT 356 T -6 QTc 451 Conclusion Sinus rhythm...normal P axis, V-rate 60- 99 Probable left atrial enlargement...P >50mS, <-0.10mV V1 no ST segment or T wave abnormalities to suggest occlusive ID
[2025-09-30 18:34] VITALS: BP 152/125; PULSE 109; RESP 16; TEMP 37; O2SAT 97
--- NOTE | 2025-09-30 19:21 | W.ED.GENAD ---
Discharge Plan Disposition Patient Disposition: Home Condition: Stable Discharge Details Clinical Impression: Hypertensive urgency, Sinusitis Primary Care Provider: Harjinder Tina ED Provider: Ehsan Quijano Home Meds and New Rx's Prescriptions: New amlodipine 5 mg tablet 5 mg PO DAILY Qty: 30 0RF amoxicillin-pot clavulanate 875-125 mg tablet 1 tab PO BID 10 Days Qty: 20 0RF hydroxyzine HCl 25 mg tablet 25 mg PO TID PRNQty: 30 0RF Continued hydroxyzine HCl 25 mg tablet 25 mg PO QHS Patient Comments: not currently taking Mirena 20 mcg/24 hours (6 yrs) 52 mg intrauterine device 1 insert intrauterine ONCE Qty: 1 0RF Rx Instructions: as a single dose naproxen sodium 550 MG tablet 550 mg PO Q12H PRN Qty: 60 Rx Instructions: replaces naproxen Rx. ibuprofen 600 mg tablet 600 mg PO Q6H PRN (Reason: pain) Qty: 30 0RF methocarbamol 500 mg tablet 500 mg PO Q6H PRN (Reason: muscle spasm) Qty: 14 0RF prednisone 20 mg tablet See Rx Instructions .ROUTE .COMPLEX Qty: 18 0RF Rx Instructions: Take 3 tabs daily for 3 days, then 2 tabs daily for 3 days, then 1 tab daily for 3 days. propranolol 10 mg tablet 10 mg PO Q6H multivitamin Tablet 1 tab PO DAILY docosahexaenoic acid-epa Capsule 1 cap PO DAILY Discharge Instructions Instructions: High blood pressure emergencies, Amlodipine, Sinusitis, Adult ED, DASH diet Additional Instructions: You were seen in the emergency department for your elevated blood pressures after some emotional stressful days you endorse some chest pressure days ago and neck pain. Your CT of your head shows no intracranial hemorrhage, your EKG shows no acute ischemic changes of the heart like a heart attack and your cardiac enzymes are negative. This may be emotionally related high blood pressure, I am starting you on a medicine called amlodipine for blood pressure. Please hold off on taking your propranolol in the meantime until he can speak with your primary care provider-we discussed starting a different medicine called lisinopril but this requires primary care follow-up and there is a potential for serious allergy with a developing dry cough with this medication, you concurrently have a cough so would be difficult to discern the side effect so you opted to start amlodipine. Please keep track of your blood pressure twice per day, follow the DASH diet to reduce your blood pressure with lifestyle changes, incidentally your CT does show some sinus fluid and I have sent you a prescription for Augmentin to treat sinusitis. Incidental findings to speak with your primary care provider on her mild to moderate diffuse cerebral volume loss of the brain, possibly linked to past alcohol use. Do not hesitate to return to the ER for any emergent concerns. Stand Alone Forms: Portal Information Referrals: Harjinder Tian DO [Primary Care Provider, Medicine] Discharge Data Discharge Date/Time-TO BE ENTERED AT DEPARTURE: 09/30/25 21:30 HPI General Date/Time Provider Initiated Documentation: 09/30/25 18:36. HPI Narrative: 45 year-old female presents to ED today by POV/ambulating with a chief complaint of chest tightness, elevated blood pressures- feeling rundown with a URI for 2 weeks with onset insidiously since - patient is most concerned with her BP readings. Quality described as no current chest pain, shortness of breath, dizziness, diaphoresis, no radiation to fever, nausea, vomiting, endorses having a headache the past couple days. Severity is described as moderate. Palliating factors include nothing specific. Provoking factors include nothing specific. Patient not anticoagulated. Related Data Home Medications Medication Instructions Recorded Confirmed naproxen sodium 550 mg tablet 550 mg PO Q12H PRN #60 tab-caps 09/30/16 09/30/25 docosahexaenoic acid (dha)-epa 1 cap PO DAILY 11/07/20 09/30/25 capsule multivitamin 1 tab PO DAILY 11/07/20 09/30/25 ibuprofen 600 mg tablet 600 mg PO Q6H PRN pain #30 tabs 04/09/21 09/30/25 hydroxyzine HCl 25 mg tablet 25 mg PO QHS 04/16/21 09/30/25 levonorgestrel (Mirena) 1 insert intrauterine ONCE #1 ea 07/25/21 09/30/25 methocarbamol 500 mg tablet 500 mg PO Q6H PRN muscle spasm #14 10/05/21 09/30/25 tabs prednisone 20 mg tablet See Rx Instructions .Route 10/05/21 09/30/25 .COMPLEX #18 tabs amlodipine 5 mg tablet 5 mg PO DAILY #30 tabs 09/30/25 amoxicillin 875 mg-potassium 1 tab PO BID 10 days #20 tabs 09/30/25 clavulanate 125 mg tablet hydroxyzine HCl 25 mg tablet 25 mg PO TID PRN #30 tabs 09/30/25 propranolol 10 mg tablet 10 mg PO Q6H 09/30/25 09/30/25 Previous Rx's Medication Instructions Recorded ibuprofen 600 mg tablet 600 mg PO Q6H PRN pain #30 tabs 04/09/21 levonorgestrel (Mirena) 1 insert intrauterine ONCE #1 ea 07/25/21 methocarbamol 500 mg tablet 500 mg PO Q6H PRN muscle spasm #14 10/05/21 tabs prednisone 20 mg tablet See Rx Instructions .Route 10/05/21 .COMPLEX #18 tabs amlodipine 5 mg tablet 5 mg PO DAILY #30 tabs 09/30/25 amoxicillin 875 mg-potassium 1 tab PO BID 10 days #20 tabs 09/30/25 clavulanate 125 mg tablet hydroxyzine HCl 25 mg tablet 25 mg PO TID PRN #30 tabs 09/30/25 Allergies Allergy/AdvReac Type Severity Reaction Status Date / Time carbamazepine (From Tegretol) Allergy Unknown RASH / LEGS Unverified 09/30/25 18:44 gabapentin Allergy Skin Rash Unverified 09/30/25 18:44 General Stated Complaint: Chest Pain KALEY: 3 Review of Systems All systems reviewed & are unremarkable except as noted in HPI and below Exam Narrative Exam Narrative: GENERAL APPEARANCE: Well-nourished, non-toxic, awake and alert, atraumatic, no acute distress. SKIN: Warm, pink, dry, intact, without rashes/lesions/ulcerations. HEAD: Normocephalic, atraumatic, normal hair distribution for gender/age. EYES: Normal conjunctiva, no exudates on lids/lashes. ENT: Nares patent, no circumoral cyanosis, no facial swelling NECK: Supple, trachea midline, painless cervical ROM. LUNGS/CHEST: Lungs CTA bilaterally- no rhonchi/rales/wheezes diffusely, mild cough baselien, non-labored respirations, normal A/P diameter, symmetrical expansion, no chest wall deformity HEART (CV/PV): Regular rate and rhythm without murmur, no peripheral edema, no JVD. ABDOMEN: Soft, non-distended, no guarding, no tenderness to percussion bilateral CVA's. MSK: Normal ROM, no swelling/deformity to bilateral UEs or LEs, moving all extremities without weakness, no cyanosis, spine midline without tenderness, normal curvature. NEURO: Mental Status AAOx4 - alert to person, place, time, events No facial droop, no forehead involvement. Motor: No focal weakness - strength 5/5 in bilateral UEs and LEs, proximal and distal, symmetric. Sensory: sensation intact to light touch globally. Gait normal: patient ambulated without ataxia into ED room. PSYCH: euthymic, cooperative, pleasant, appropriate speech Course Vital Signs Vital signs: Vital Signs Temperature 37.0 C 09/30/25 18:34 Pulse 109 H 09/30/25 18:34 Respiratory Rate 16 09/30/25 18:34 Blood Pressure 152/125 H 09/30/25 18:34 Pulse Oximetry 97 09/30/25 18:34 Temperature 37.0 C 09/30/25 18:34 Temperature Source Oral 09/30/25 18:34 Pulse 109 H 09/30/25 18:34 Respiratory Rate 16 09/30/25 18:34 Blood Pressure 152/125 H 09/30/25 18:34 Blood Pressure Position Sitting 09/30/25 18:34 Pulse Oximetry 97 09/30/25 18:34 Oxygen Delivery Method Room Air 09/30/25 18:34 Oxygen Flow Rate 0 09/30/25 18:34 Pain Level 4 09/30/25 18:34 Medical Decision Making This dictation utilizes [id number] dictation software and may contain unedited grammatical errors. 45 year-old female presents to ED today by POV/ambulating with a chief complaint of chest tightness, elevated blood pressures- feeling rundown with a URI for 2 weeks with onset insidiously since - patient is most concerned with her BP readings, takes propranolol for anxiety. Quality described as no current chest pain, shortness of breath, dizziness, diaphoresis, no radiation to fever, nausea, vomiting, endorses having a headache the past couple days. Severity is described as moderate. Palliating factors include nothing specific. Provoking factors include nothing specific. Patients' medical history: History of alcohol use, tobacco use, hypertension, anxiety. Family and social history: Denies active significant alcohol use, denies drug use. Pertinent exam findings / vital signs include hypertensive on arrival with mild tachycardia, benign pulmonary exam, benign abdomen, no CVA tenderness percussion bilaterally. Differential / pathologies of concern include hypertensive urgency, hypertensive emergency, ICH, ACS less likely. Diagnostic studies of: - CBC, CMP, troponin, TSH, CT head without contrast, XR chest, EKG. - CBC unremarkable - CMP without actionable abnormality - Troponin negative - TSH within normal limits - No abnormality on chest x-ray - CT head shows mild volume loss likely secondary to past alcohol use and an incidental sinusitis - EKG shows sinus rhythm at 96 bpm with P waves following narrow complex QRS with normal axis, no ST segment or T wave abnormalities suggestive of occlusive AK, normal intervals Interventions of: -5mg amlodipine, with Rx to continue until PCP can see for poorly controlled hypertension. Rx for Augmentin for incidental sinusitis ED Course/Assessment/Plan: 45-year-old female presents for poorly controlled hypertension and general malaise with some chest pressure and elevated blood pressure readings, hypertensive emergency workup is negative, EKG is reassuring for no ischemic changes, has incidental sinusitis on CT head, counseled the patient on possible need to add a second antihypertensive in addition to her propranolol which is also treating anxiety, the I discussed possible need to start lisinopril but the patient may have difficulty differentiating a dry cough reaction with her chronic baseline cough from tobacco use so she opted for amlodipine, I counseled her that she should follow-up with her primary care provider for possible discontinuation of amlodipine, I counseled her not to take her propranolol while taking amlodipine to prevent dual blockage of beta-blockade and calcium channel scar, strict return criteria for any severe headache, visual changes, chest pain, worsening respiratory distress or any other emergent concerns. Findings not consistent with hypertensive emergency with endorgan damage, intracranial hemorrhage, ACS, thyroid pathology, serious infection. Disposition of sinusitis, hypertensive urgency. Patient verbalized understanding of the plan and return to ED criteria and engaged in shared decision making. Medical Records Medical records reviewed: Yes I reviewed the patient's medical records. Imaging Data Radiologic Study: Attestation: I personally reviewed and interpreted this imaging study as follows: Imaging: CT Scan Radiologist's impression: Exam: CT Head Without Contrast Exam date and time: 09/30/2025 7:54 PM Age: 45 years old Clinical indication: Other: Hypertension TECHNIQUE: Imaging protocol: Computed tomography of the head without contrast. COMPARISON: No relevant prior studies available. FINDINGS: Brain: There is no evidence for acute intra-axial or extra-axial hemorrhage. There is no intracranial mass or mass effect. The basilar cisterns are patent. There is mild to moderate diffuse cerebral volume loss. There is normal wadsworth-white differentiation throughout the brain. There is no CT evidence of acute cortical infarct. Cerebral ventricles: No ventriculomegaly. Paranasal sinuses: There is a small amount of dependent fluid within the right maxillary sinus which has a density of 50 Hounsfield units, suggesting proteinaceous fluid. There is also mild mucosal thickening of a portion of the left maxillary sinus. These findings are only partially imaged on this exam. Mastoid air cells: Visualized mastoid air cells are well aerated. Bones: Unremarkable. No acute fracture. Soft tissues: Unremarkable. IMPRESSION: 1. No acute intracranial process identified. 2. [id number] diffuse cerebral volume loss. 3. Findings suggest sinusitis involving the maxillary sinuses, as described above. Dictated and Authenticated by: Roger Marie MD. Radiologic Study #2: Attestation: I personally reviewed and interpreted this imaging study as follows: Imaging: X-Ray Radiologist's impression: Exam: XR Chest Exam date and time: 09/30/2025 7:59 PM Age: 45 years old Clinical indication: Other: Chest tightness TECHNIQUE: Imaging protocol: Radiologic exam of the chest. Views: 2 views. COMPARISON: CT RENAL COLIC WO 03/22/2020 9:46 PM FINDINGS: Lungs: The lungs are clear. There is no pulmonary vascular congestion. Pleural spaces: There are no pleural effusions present. There is no evidence of pneumothorax. Heart/Mediastinum: The cardiomediastinal silhouette is within normal limits. Bones/joints: There may be some degree of pectus excavatum deformity. Findings suggest mild S shaped thoracolumbar scoliosis. IMPRESSION: No active cardiopulmonary disease identified. Dictated and Authenticated by: Roger Marie MD. Lab Data Lab results reviewed: Yes I reviewed the patient's lab results. Labs: Laboratory Tests Range/Units 09/30/25 19:54 WBC (4.4-10.8) 10^3/uL 7.77 RBC (3.93-5.22) 10^6/uL 4.55 Hgb (11.2-15.7) g/dL 14.2 Hct (36.0-46.0) % 42.9 MCV (80-95) fL 94 MCH (27.0-33.0) pg 31.2 MCHC (32.0-36.0) % 33.1 RDW (11.7-14.6) % 11.7 Plt Count (130-400) 10^3/uL 309 MPV (8.0-11.0) fL 10.8 Immature Gran % % 0.3 Neutrophils % % 65.9 Lymphocytes % % 25.6 Monocytes % % 6.0 Eosinophils % % 1.8 Basophils % % 0.4 Nucleated RBC % (0.0-0.3) % 0.0 Absolute Neutrophils (1.2-6.7) 10^3/uL 5.12 Absolute Lymphocytes (1.2-3.4) 10^3/uL 1.99 Absolute Monocytes (0.1-0.8) 10^3/uL 0.47 Absolute Eosinophils (0.0-0.7) 10^3/uL 0.14 Absolute Basophils (0.0-0.2) 10^3/uL 0.03 Sodium (136-145) mmol/L 138 Potassium (3.5-5.1) mmol/L 3.7 Chloride (98-107) mmol/L 101 Carbon Dioxide (21.0-32.0) mmol/L 22.9 Anion Gap (3-11) mmol/L 14.1 H BUN (7-18) mg/dL 6 L Creatinine (0.55-1.02) mg/dL 0.5 L Est GFR (CKD-EPI 2020) (mL/min/1.73m2) 116.34 Glucose (74-106) mg/dL 82 Calcium (8.5-10.1) mg/dL 9.3 Total Bilirubin (0.2-1.0) mg/dL 0.4 AST (15-37) U/L 63 H ALT (14-59) U/L 116 H Alkaline Phosphatase (46-116) U/L 110 Troponin I (<or=51) ng/L 17 Total Protein (6.4-8.2) g/dL 7.7 Albumin (3.4-5.0) g/dL 3.8 TSH (0.36-3.74) uIU/mL 3.11 PFSH All Active Problems Sinusitis (Acute) Hypertensive urgency (Acute) Lumbar strain (Acute) IUD check up (Acute) IUD (intrauterine device) in place (Acute) inserted. 06/2021. Fracture of fifth toe, right, closed (Acute) Anxiety (Chronic) Depression (Chronic) Tobacco use (Acute) Medical History (Updated 09/30/25 @ 21:21 by FERNY Cha) Encounter for insertion of mirena IUD History of depression Zoloft x6mo. Surgical History (Updated 07/25/21 @ 17:33 by Steff Mock MD) History of left salpingo-oophorectomy 04/09/2021. Laparoscopic evaluation of possible left ovarian ectopic . Social History (Updated 04/09/21 @ 01:01 by Steff Mock MD) Smoking/Tobacco Use Status: Current every day Tobacco Type: cigarettes Smoking risk assessment performed?: Yes Alcohol Intake: current Alcohol Intake frequency: 3 or more drinks per day Alcohol type: beer, wine and hard liquor Drug use: Occasionally Substance use type: marijuana, club/cartographic designer drugs and other Household members: other Details: Cordell who has custody of 2 children Number of Children: 2 Communication Needs: None current occupation: owns a diner Sexually active: Yes Do you feel safe at home: Yes Do you feel safe in your relationship?: Yes History History 3 Para 2 Hx # Term Pregnancies 2 Multiple births Hx # Pregnancies 0 Ectopic pregnancies AB induced 1 Hx Number of Living Children 2 AB spontaneous Past Pregnancies Del. Date GA/Weeks # Preg Succ Route Wgt Sex Labor Lgth Anesthesia Location Prov Complic 02/19/11 40 No vaginal 3033.399 g Male 09/28/11 8 No 07/09/15 40 No vaginal 3373.593 g Female Delivery Date: 02/19/11 Last Updated by: Steff Mock M.D. [facility] Delivery Date: 09/28/11 Last Updated by: Steff Mock M.D. [facility] Delivery Date: 07/09/15 Last Updated by: Duran Garciaiet
--- NOTE | 2025-09-30 19:30 | DI.CT_ITS ---
Exam(s) CT HEAD WO EXAM: CT HEAD WO CLINICAL HISTORY: hypertension. TECHNIQUE: Imaging Protocol: Axial computed tomography images with coronal and sagittal reformatted images were created and reviewed COMPARISON: No exams were available for comparison FINDINGS: Ventricles and Extra axial spaces: Normal in size and morphology for the patient's age. Hemorrhage: None. Cerebral parenchyma: There is no evidence of an acute territorial infarct. Midline shift: None. Brainstem/Cerebellum: Normal. Calvarium: Normal. Visualized Paranasal sinuses/Mastoids: There is mucosal thickening in the maxillary sinuses bilaterally. There is a small fluid level in the right maxillary sinus. Soft Tissues: Unremarkable. IMPRESSION: 1. No acute intracranial process. 2. Maxillary sinusitis. 3. The preliminary [facility] report was reviewed. RADIATION DOSE DELIVERED: 936.9mGy.cm Total DLP DATA REPOSITORY: All CT scans at this facility are submitted to the National Radiology Data Registry (NRDR) Dose Index Registry (DIR) with the [employer] (A[employer]). RADIATION OPTIMIZATION: All CT scans at this facility use at least one of these dose optimization techniques: automated exposure control; mA and/or kV adjustment per patient size (includes targeted exams where dose is matched to clinical indication); or iterative reconstruction.
--- NOTE | 2025-09-30 19:30 | DI.RAD_ITS ---
Exam(s) XR CHEST 2V PA LATERAL EXAM: XR CHEST 2V PA LATERAL CLINICAL HISTORY: chest tightness TECHNIQUE: 2D digital imaging was performed of the chest. Two images were obtained. PA and lateral views were obtained. COMPARISON: No exams were available for comparison FINDINGS: MEDIASTINUM: Normal. HEART: Normal. PULMONARY VASCULATURE: Normal. LUNGS: Clear. PLEURAL SPACE: No pleural effusion or pneumothorax. BONE:Within normal limits for the patient's age. OTHER FINDINGS:Normal. IMPRESSION: 1. No acute pulmonary findings. 2. The preliminary [facility] report was reviewed. DATA REPOSITORY: RADIATION DOSE DELIVERED:
[2025-09-30 20:01] LABS: Abs Immature Grans 0.02 10^3/uL (0.0-0.06); HCT 42.9 % (36.0-46.0); HGB 14.2 g/dL (11.2-15.7); Immature Grans % 0.3 %; MCH 31.2 pg (27.0-33.0); MCHC 33.1 % (32.0-36.0); MCV 94 fL (80-95); MPV 10.8 fL (8.0-11.0); Platelet Count 309 10^3/uL (130-400); RBC 4.55 10^6/uL (3.93-5.22); RDW 11.7 % (11.7-14.6); RDW-SD 40.8 fL; WBC 7.77 10^3/uL (4.4-10.8)
[2025-09-30 20:26] LABS: ALT 116 U/L (14-59); AST 63 U/L (15-37); Albumin 3.8 g/dL (3.4-5.0); Alkaline Phosphatase 110 U/L (46-116); Anion Gap 14.1 mmol/L (3-11); BUN 6 mg/dL (7-18); Bilirubin, Total 0.4 mg/dL (0.2-1.0); CO2 22.9 mmol/L (21.0-32.0); Calcium 9.3 mg/dL (8.5-10.1); Chloride 101 mmol/L (98-107); Glucose 82 mg/dL (74-106); Potassium 3.7 mmol/L (3.5-5.1); Sodium 138 mmol/L (136-145); TSH (W/Ref FT4) 3.11 uIU/mL (0.36-3.74); Total Protein 7.7 g/dL (6.4-8.2); Troponin I 17 ng/L (<or=51)
--- NOTE | 2025-09-30 20:29 | DI.[facility]_ITS ---
PROCEDURE INFORMATION: Exam: CT Head Without Contrast Exam date and time: 09/30/2025 7:54 PM Age: 45 years old Clinical indication: Other: Hypertension TECHNIQUE: Imaging protocol: Computed tomography of the head without contrast. COMPARISON: No relevant prior studies available. FINDINGS: Brain: There is no evidence for acute intra-axial or extra-axial hemorrhage. There is no intracranial mass or mass effect. The basilar cisterns are patent. There is mild to moderate diffuse cerebral volume loss. There is normal wadsworth-white differentiation throughout the brain. There is no CT evidence of acute cortical infarct. Cerebral ventricles: No ventriculomegaly. Paranasal sinuses: There is a small amount of dependent fluid within the right maxillary sinus which has a density of 50 Hounsfield units, suggesting proteinaceous fluid. There is also mild mucosal thickening of a portion of the left maxillary sinus. These findings are only partially imaged on this exam. Mastoid air cells: Visualized mastoid air cells are well aerated. Bones: Unremarkable. No acute fracture. Soft tissues: Unremarkable. IMPRESSION: 1. No acute intracranial process identified. 2. [id number] diffuse cerebral volume loss. 3. Findings suggest sinusitis involving the maxillary sinuses, as described above. Dictated and Authenticated by: Roger Marie MD. Orderin Samm Moser MD
--- NOTE | 2025-09-30 20:35 | DI.[facility]_ITS ---
PROCEDURE INFORMATION: Exam: XR Chest Exam date and time: 09/30/2025 7:59 PM Age: 45 years old Clinical indication: Other: Chest tightness TECHNIQUE: Imaging protocol: Radiologic exam of the chest. Views: 2 views. COMPARISON: CT RENAL COLIC WO 03/22/2020 9:46 PM FINDINGS: Lungs: The lungs are clear. There is no pulmonary vascular congestion. Pleural spaces: There are no pleural effusions present. There is no evidence of pneumothorax. Heart/Mediastinum: The cardiomediastinal silhouette is within normal limits. Bones/joints: There may be some degree of pectus excavatum deformity. Findings suggest mild S shaped thoracolumbar scoliosis. IMPRESSION: No active cardiopulmonary disease identified. Dictated and Authenticated by: Roger Marie MD. Orderin Samm Moser MD
[2025-09-30 20:51] VITALS: PULSE 116; RESP 16
[2025-09-30 20:54] VITALS: BP 165/123; PULSE 93; PULSE 97; RESP 21; O2SAT 98
[2025-09-30 20:55] VITALS: BP 175/118; PULSE 102; PULSE 93; RESP 23; O2SAT 99
[2025-09-30 21:00] VITALS: PULSE 102; RESP 14; O2SAT 98
[2025-09-30 21:01] VITALS: BP 180/120; PULSE 100; O2SAT 16
[2025-09-30] MEDS: amLODIPine 5 MG TAB PO (21:11)
== END 2025-09-30 21:30 | disposition home or self-care (01) ==
PROVIDERS: Emergency Provider Physician Assistant; PCP Specialist/Technologist Athletic Trainer
DX: I16.1 Hypertensive emergency (principal); J01.90 Acute sinusitis, unspecified
CPT/HCPCS: 99285 ×2; 36415; 80053; 93005; 70450; 71046; 81003; 84443; 84484; 85025; 93010